=== PATIENT | female | born 1935 | race Caucasian/White ===

== ENCOUNTER → 2016-12-18 | Outpatient (CLI) | payer OTHER, BC ==
[~2016-12-18] MED LIST: ADVIN25/60 INH; ALBUAER INH; ASPI81TA28 PO; CHOL100010 PO; CYAN10004 PO; INSHNI SC; INSUINJ SC; LISI-792 PO; METF-382 PO; MULT-884 PO; OMEGCAP2 PO; RALO60TA12 PO; SIMV10TA5 PO
[2016-12-18 13:20] LABS: ESTIMATED AVERAGE GLUCOSE 140 mg/dl; HA1C FLAG Normal (Normal)
[2016-12-18 13:45] LABS: RATIO 18.1 mcg/mg (0-30.0)
== END | disposition home or self-care (01) ==
LOC: C.LABBFT 08:53
PROVIDERS: ATTEND Nurse Practitioner Adult Health
DX: E11.9 Type 2 diabetes mellitus without complications (principal); I10 Essential (primary) hypertension

== ENCOUNTER → 2017-03-20 | Outpatient (CLI) | payer OTHER, BC ==
[~2017-03-20] MED LIST changes: +BROM0.07; +CYAN100020 PO; +LISI-725 PO; +MULT-506 PO; +OMEG10007 PO; +POLYSOL21; +PRDFOPS; -RALO60TA12 PO; +RALO60TA30 PO; +SIMV10TA2 PO; +VNTHFA/IN INH; +ZNTT/150 PO
== END | disposition home or self-care (01) ==
LOC: C.LABBFT 12:01
PROVIDERS: ATTEND Internal Medicine
DX: E55.9 Vitamin D deficiency, unspecified (principal); E66.9 Obesity, unspecified

== ENCOUNTER → 2017-05-22 | Outpatient (CLI) | payer OTHER, BC ==
--- NOTE | 2017-05-23 09:07 | MAMMOGRAPHY REPORT ---
BILATERAL DIGITAL SCREENING MAMMOGRAM WITH CAD: 05/22/2017 CLINICAL HISTORY: Routine screening. Patient has no complaints. TECHNIQUE: Current study was also evaluated with a Computer Aided Detection (CAD) system. Bilateral CC and MLO views were obtained. COMPARISON: Comparison is made to exams dated: 05/16/2016 mammogram, 05/13/2015 mammogram, 05/12/2014 m ammogram, 05/06/2013 mammogram, 04/22/2012 mammogram, and 04/17/2011 mammogram - [facility] nter. BREAST COMPOSITION: The tissue of both breasts is heterogeneously dense, which may obscure small mas ses. FINDINGS: No suspicious masses, calcifications, or areas of architectural distortion are noted in ei ther breast. There has been no significant interval change compared to prior exams. Scattered bilater al benign-appearing calcifications are again noted. A linear scar marker denotes a scar on the right upper outer breast. IMPRESSION: ACR BI-RADS CATEGORY 2: BENIGN There is no mammographic evidence of malignancy. A 1 year screening mammogram is recommended. The pa tient will receive written notification of the results. Approximately 10% of breast cancers are not detected with mammography. A negative mammographic report should not delay biopsy if a clinically suggestive mass is present. Shannan Link M.D. /:05/22/2017 15:57:00 [employer]: Julia Garcia, [facility] letter sent: Normal 1/2 BI-RADS Code: ACR BI-RADS Category 2: Benign
== END | disposition home or self-care (01) ==
LOC: C.MAMM 10:22
PROVIDERS: ATTEND Obstetrics & Gynecology
DX: Z12.31 Encounter for screening mammogram for malignant neoplasm of breast (principal)

== ENCOUNTER → 2017-09-18 | Outpatient (CLI) | payer OTHER, BC ==
[~2017-09-18] MED LIST changes: +RALO60TA12 PO; -RALO60TA30 PO
[2017-09-18 17:28] LABS: BASO % 0.4 %; BASO ABS # 0.06 K/uL (0-0.2); COMPLETE YES; EOS % 1.2 %; HEMATOCRIT 43.2 % (37-47); IG% 0.5 %; LYMPH % 24.8 %; LYMPH ABS # 3.58 K/uL (1.2-3.4); MEAN CELL VOLUME 96.6 fL (80-100); MEAN CORPUSCULAR HEMOGLOBIN 31.1 pg (25-34); MEAN CORPUSCULAR HGB CONC 32.2 g/dl (32-36); MONO % 6.9 %; NEUT % 66.2 %; PLATELET COUNT 240 K/uL (130-400); RED BLOOD COUNT 4.47 M/uL (4.2-5.4); WHITE BLOOD COUNT 14.43 K/uL (4.8-10.8)
[2017-09-18 17:39] LABS: ALT/SGPT 26 U/L (12-78); BLOOD UREA NITROGEN 19 mg/dl (7-18); BUN/CREATININE RATIO 16.1 (10-20); CALCIUM 9.2 mg/dl (8.5-10.1); CARBON DIOXIDE 28 mmol/L (21-32); CHLORIDE 107 mmol/L (98-107); CHOLESTEROL 165 mg/dl (0-200); CREATININE 1.17 mg/dl (0.60-1.20); GLUCOSE 125 mg/dl (70-99); POTASSIUM 3.8 mmol/L (3.5-5.1); SODIUM 141 mmol/L (136-145)
[2017-09-18 17:45] LABS: ALB/GLOB RATIO 1.1 (0.9-2); ALKALINE PHOSPHATASE 87 U/L (45-117); AST/SGOT 22 U/L (15-37); CHOLESTEROL/HDL RATIO 2.1; HDL CHOLESTEROL 78 mg/dl; LDL CHOLESTEROL CALCULATED 51 mg/dl; TRIGLYCERIDES 179 mg/dl (0-150); VERY LOW DENSITY LIPOPROT CALC 36 mg/dl
[2017-09-19 05:57] LABS: ESTIMATED AVERAGE GLUCOSE 131 mg/dl; HA1C FLAG Normal (Normal)
== END | disposition home or self-care (01) ==
LOC: C.LABBFT 12:22
PROVIDERS: ATTEND Internal Medicine
DX: E11.9 Type 2 diabetes mellitus without complications (principal); E78.5 Hyperlipidemia, unspecified

== ENCOUNTER → 2017-09-23 | Day surgery (SDC) | payer OTHER, BC ==
[2017-09-19 08:40] VITALS: Ht 157.5 cm; Wt 77.3 kg
[~2017-09-23] VITALS: Ht 157.5 cm; Wt 77.3 kg
[~2017-09-23] MED LIST changes: +500ML BSS 0.3ML EPI 1:1000PF IRRIG ONE; +ACETAMINOPHEN 325 MG TAB PO PRN; -ALBUAER INH; +AMVISC PLUS 0.8ML SYRINGE INT OCU ONE; +ATROPINE SULFATE 0.1 MG/ML 5ML SYR IV PRN; +BRIMONIDINE TART 0.2% OP SOLN PER DROP CHARGE ONE; +BSS FLUSH ONE; -CYAN10004 PO; +ENDOCOAT 0.85ML SYRINGE INT OCU ONE; +EpHEDrine SULFATE INJ 50 MG/ML AMP IV PRN; +EpINEphrine INJ 1MG/ML AMP 1 MG/ML AMP ONE; -INSUINJ SC; +LACTATED RINGER'S 1000ML 500 ML IV SCH; +LIDOCAINE 4% OP SOLN DROP CHARGE ONE; +LIDOCAINE 4% OP SOLN DROP CHARGE OPR SCH; +LIDOCAINE HCL 1% MPF 2 ML VIAL ONE; -LISI-792 PO; -METF-382 PO; +MIDAZOLAM HCL 1 MG/ML 2ML VIAL ONE; +MOXIFLOXACIN OPH SOLN PER DROP CHARGE ONE; -MULT-884 PO; -OMEGCAP2 PO; +POVIDONE-IODINE OP SOLN 30 ML BTL ONE; +PROPARACAINE 0.5% OP SOLN PER DROP CHARGE OPR SCH; +PROPARACAINE HCL 0.5% OP SOLN 15 ML BTL OPR ONE; -RALO60TA12 PO; +RALO60TA30 PO; -SIMV10TA5 PO; +TOBRAMYCIN/DEXAMETHASONE OPH OINT PER APPLN CHARGE ONE
--- NOTE | 2017-09-23 06:56 | History & Physical Bridge - [place] ---
H&P Re-Evaluation Bridge Note: I have examined the patient, reviewed the History & Physical and in the interval since the performance of the History & Physical I have noted the following changes of clinical significance: No changes noted
[2017-09-23] MEDS: PHENYLEPHRINE HCL 2.5% OP SOLN PER DROP CHARGE OPR SCH ×2 (06:58→07:03)
[2017-09-23] MEDS: TROPICAMIDE 1% OP SOLN PER DROP CHARGE OPR SCH ×2 (06:59→07:04)
[2017-09-23] MEDS: CYCLOPENTOLATE HCL 1% OP SOLN PER DROP CHARGE OPR SCH ×2 (07:00→07:05)
[2017-09-23] MEDS: KETOROLAC 0.5% OP SOLN PER DROP CHARGE OPR SCH ×2 (07:01→07:06)
[2017-09-23] MEDS: MOXIFLOXACIN OPH SOLN PER DROP CHARGE OPR SCH ×2 (07:02→07:13)
--- NOTE | 2017-09-23 08:10 | Discharge Instructions-SurgCtr ---
Discharge Instructions Date of Service Sep 23, 2017. Visit Reason for Visit: Cataract Right Eye Discharge Discharge Diagnosis / Problem: cataract right eye Discharge Goals Goal(s): Improve function Activity Recommendations Activity Limitations: per Instructions/Follow-up section Lifting Limitations: no more than 5 pounds Anesthesia . Post Anesthesia Instructions: If you have had General Anesthesia or IV Sedation: * Do not drive today. * Resume driving when surgeon permits. * Do not make important decisions or sign legal documents today. * Call surgeon for: 1. Temperature elevations greater than 101 degrees F. 2. Uncontrollable pain. 3. Excessive bleeding. 4. Persistent nausea and vomiting. 5. Medication intolerance (nausea, vomiting or rash). * For nausea and vomiting use only clear liquids such as: tea, soda, bouillon until nausea subsides, then gradually increase diet as tolerated. * If you have any concerns or questions, call your surgeon's office. If physician is unavailable and it is an emergency, call 911 or go to the nearest emergency room. . Instructions / Follow-Up Instructions / Follow-Up ACTIVITY RECOMMENDATIONS: * Light activities * You may walk outside, read, watch television. * Mild irritation and blurred vision are common for the first few days, redness around the white part of the eye is common. MEDICATIONS: Resume previous medications unless instructed otherwise by your surgeon. Eye drops (today and tomorrow): Polytrim - one drop in operative eye every 2 hours while awake Prednisolone 1% - one drop in operative eye every 2 hours while awake Prolensa - one drop operative eye 1 times daily SPECIAL CARE INSTRUCTIONS: * If any problems or concerns, please call Dr. Medina's office at . * Keep plastic shield taped over eye to sleep at night. * Keep plastic shield taped over eye except to administer eye drops. * Keep plastic shield on until office visit the following day. FOLLOW UP VISIT: Follow-up with Dr. Medina in the [place] office as scheduled. If not already scheduled, please call the office at . Diet Recommendations Home Diet: resume previous diet Procedures Procedures Performed: Right Cataract Phacoemulsification With Intraocular Lens Implant; Toric Lens Pending Studies Studies pending at discharge: no Medical Emergencies . Who to Call and When: Medical Emergencies: If at any time you feel your situation is an emergency, please call 911 immediately. . Non-Emergent Contact Non-Emergency issues call your: Senior Courtroom Clerk . . "Provider Documentation" section prepared by Carlo Medina. .
[2017-09-23 08:11] VITALS: TEMP 36.8
--- NOTE | 2017-09-23 08:15 | [facility] Operative Report ---
Operative Report Operative Date Sep 23, 2017. Pre-Operative Diagnosis Cataract and astigmatism Right Eye Post-Operative Diagnosis Same Procedure(s) Performed Right Cataract Phacoemulsification With Intraocular Lens Implant; Toric Lens with femtosecond laser Surgeon Dr. Medina Administrative Hearing Officer Surgeon(s) None Estimated Blood Loss 0 mL Findings cataract right eye Fluids (cc crystalloids) see anesthesia record Specimens None Drains none Anesthesia local with sedation Complication(s) None Disposition Recovery Room / PACU Implants MIGUELINA [id number] 19.0 Indications decreased vision right eye Description of Procedure After informed consent was obtained in the holding area the patient was wheeled back to the femtosecond laser room. The right eye was docked with the laser and the laser made the capsulorrhexis, prechop of the lens, and the primary incision at the 9 o'clock position of the right cornea. The patient was then taken to the the operating room where cardiac monitoring leads and oxygen by nasal cannula was administered by Anesthesia. Gentle IV sedation was given, and the patient's right eye was prepped and draped in usual sterile fashion. A wire lid speculum was placed into the right eye and the operating microscope was swung into position. Using 0.12 forceps and a Supersharp blade a paracentesis port was made 2 o'clock hours away from the 9 o'clock position of the patient's right eye. 1% non-preserved Lidocaine was then injected into the anterior chamber for anesthesia. Endocoat was then injected into the anterior chamber. A 2.2 mm keratotome blade was then used to enter the femto shelved clear corneal incision at the 9 o'clock position of the right eye. Amvisc was injected into the anterior chamber and Utrata forceps were used to remove the curvilinear capsulorrhexis. BSS on a hydrodissection cannula was used to hydrodissect the lens nucleus away from the capsular bag. The phacoemulsification handpiece was then used in a stop and chop fashion to remove the lens nucleus. The irrigation and aspiration handpiece was then used to remove the residual cortical material. Amvisc was injected into the capsular bag and anterior chamber and a MIGUELINA ULE357 19.0 Diopter intraocular lens was injected into the capsular bag. Irrigation and aspiration handpiece was used to remove the residual viscoelastic material. The lens was aligned with corneal markings on the 15 degree axis of the right eye. The wounds were hydrated and noted to be watertight. The wire lid speculum was removed from the eye. Vigamox, Brimonidine, and TobraDex ointment were placed on the eye and it was shielded. It should be noted that EndoCoat was used extensively during the case to protect the cornea endothelium. DISPOSITION: The patient tolerated the procedure well and was wheeled to the post anesthesia care unit in stable condition. I attest to the content of the Intraoperative Record and any orders documented therein. Any exceptions are noted below. I attest to the content of the Intraoperative Record and any orders documented therein. Any exceptions are noted below.
--- NOTE | 2017-09-23 08:23 | Anesthesia Progress Nt - [facility] ---
Anesthesia Post Op Note Date & Time Sep 23, 2017 at 08:23 Vital Signs Pain Intensity: 0 Vital Signs Past 12 Hours Date Time Temp Pulse Resp B/P (MAP) Pulse Ox O2 Delivery O2 Flow Rate FiO2 09/23/17 08:11 36.8 63 18 157/85 (109) 99 Room Air 09/23/17 07:39 76 16 156/75 97 09/23/17 07:33 70 16 131/61 98 Room Air 09/23/17 06:46 36.8 82 16 147/74 (98) 98 Room Air Notes Mental Status: alert / awake / arousable, participated in evaluation Pt Amnestic to Procedure: Yes Nausea / Vomiting: adequately controlled Pain: adequately controlled Airway Patency, RR, SpO2: stable & adequate BP & HR: stable & adequate Hydration State: stable & adequate Anesthetic Complications: no major complications apparent
[2017-09-23 08:30] VITALS: BP 135/74; PULSE 63; O2SAT 98
== END | disposition home or self-care (01) ==
LOC: X.SURG 06:27
PROVIDERS: ATTEND Ophthalmology
DX: H25.11 Age-related nuclear cataract, right eye (principal); H52.201 Unspecified astigmatism, right eye; E10.9 Type 1 diabetes mellitus without complications; I49.9 Cardiac arrhythmia, unspecified; J45.909 Unspecified asthma, uncomplicated; Z79.4 Long term (current) use of insulin; Z79.82 Long term (current) use of aspirin; Z79.899 Other long term (current) drug therapy

== ENCOUNTER → 2017-10-14 | Day surgery (SDC) | payer OTHER, BC ==
[2017-10-08 08:04] VITALS: Ht 157.5 cm; Wt 77.3 kg
[~2017-10-14] VITALS: Ht 157.5 cm; Wt 77.3 kg
[~2017-10-14] MED LIST changes: -BROM0.07; +LIDOCAINE 4% OP SOLN DROP CHARGE OPL SCH; -LIDOCAINE 4% OP SOLN DROP CHARGE OPR SCH; -POLYSOL21; -PRDFOPS; +PROPARACAINE 0.5% OP SOLN PER DROP CHARGE OPL SCH; -PROPARACAINE 0.5% OP SOLN PER DROP CHARGE OPR SCH; +PROPARACAINE HCL 0.5% OP SOLN 15 ML BTL OPL ONE; -PROPARACAINE HCL 0.5% OP SOLN 15 ML BTL OPR ONE
[2017-10-14] MEDS: PHENYLEPHRINE HCL 2.5% OP SOLN PER DROP CHARGE OPL SCH ×2 (06:53→06:59)
[2017-10-14] MEDS: TROPICAMIDE 1% OP SOLN PER DROP CHARGE OPL SCH ×2 (06:54→06:59)
[2017-10-14] MEDS: CYCLOPENTOLATE HCL 1% OP SOLN PER DROP CHARGE OPL SCH ×2 (06:55→07:00)
[2017-10-14] MEDS: KETOROLAC 0.5% OP SOLN PER DROP CHARGE OPL SCH ×2 (06:56→07:01)
[2017-10-14] MEDS: MOXIFLOXACIN OPH SOLN PER DROP CHARGE OPL SCH ×2 (06:57→07:07)
--- NOTE | 2017-10-14 08:07 | Discharge Instructions-SurgCtr ---
Discharge Instructions Date of Service Oct 14, 2017. Visit Reason for Visit: Left Cataract Discharge Discharge Diagnosis / Problem: cataract left eye Discharge Goals Goal(s): Improve function Activity Recommendations Activity Limitations: per Instructions/Follow-up section Lifting Limitations: no more than 5 pounds Anesthesia . Post Anesthesia Instructions: If you have had General Anesthesia or IV Sedation: * Do not drive today. * Resume driving when surgeon permits. * Do not make important decisions or sign legal documents today. * Call surgeon for: 1. Temperature elevations greater than 101 degrees F. 2. Uncontrollable pain. 3. Excessive bleeding. 4. Persistent nausea and vomiting. 5. Medication intolerance (nausea, vomiting or rash). * For nausea and vomiting use only clear liquids such as: tea, soda, bouillon until nausea subsides, then gradually increase diet as tolerated. * If you have any concerns or questions, call your surgeon's office. If physician is unavailable and it is an emergency, call 911 or go to the nearest emergency room. . Instructions / Follow-Up Instructions / Follow-Up ACTIVITY RECOMMENDATIONS: * Light activities * You may walk outside, read, watch television. * Mild irritation and blurred vision are common for the first few days, redness around the white part of the eye is common. MEDICATIONS: Resume previous medications unless instructed otherwise by your surgeon. Eye drops (today and tomorrow): Polytrim - one drop in operative eye every 2 hours while awake Prednisolone 1% - one drop in operative eye every 2 hours while awake Prolensa - one drop operative eye 1 times daily SPECIAL CARE INSTRUCTIONS: * If any problems or concerns, please call Dr. Medina's office at . * Keep plastic shield taped over eye to sleep at night. * Keep plastic shield taped over eye except to administer eye drops. * Keep plastic shield on until office visit the following day. FOLLOW UP VISIT: Follow-up with Dr. Medina in the [place] office as scheduled. If not already scheduled, please call the office at . Diet Recommendations Home Diet: resume previous diet Procedures Procedures Performed: Left Cataract Phacoemulsification With Intraocular Lens Implant, Toric Lens Pending Studies Studies pending at discharge: no Medical Emergencies . Who to Call and When: Medical Emergencies: If at any time you feel your situation is an emergency, please call 911 immediately. . Non-Emergent Contact Non-Emergency issues call your: Lamp Shade Joiner . . "Provider Documentation" section prepared by Carlo Medina. .
--- NOTE | 2017-10-14 08:12 | [facility] Operative Report ---
Operative Report Operative Date Oct 14, 2017. Pre-Operative Diagnosis Cataract Left Eye Post-Operative Diagnosis Same Procedure(s) Performed Left Cataract Phacoemulsification With Intraocular Lens Implant, Toric Lens and femtosecond laser Surgeon Dr. Medina Dry Chain Puller Surgeon(s) None Estimated Blood Loss 0 Findings cataract left eye Fluids (cc crystalloids) see anesthesia record Specimens None Drains none Anesthesia local with sedation Complication(s) None Disposition Recovery Room / PACU Implants MIGUELINA [id number] 19.0 Indications decreased vision left eye Description of Procedure After informed consent was obtained in the holding area the patient was wheeled back to the femtosecond laser room where the left eye was docked with the laser. The laser made the primary incision at the 3 o'clock position of the left eye as well as the prechop of the lens and the capsulorrhexis. The patient was then taken to the operating room where cardiac monitoring leads and oxygen by nasal cannula was administered by Anesthesia. Gentle IV sedation was given, and the patient's left eye was prepped and draped in usual sterile fashion. A wire lid speculum was placed into the left eye and the operating microscope was swung into position. Using 0.12 forceps and a Supersharp blade a paracentesis port was made 2 o'clock hours away from the 3 o'clock position of the patient's left eye. 1% non-preserved Lidocaine was then injected into the anterior chamber for anesthesia. Endocoat was then injected into the anterior chamber. A Cristopher spatula was then used to enter the shelved clear corneal incision at the 3 o'clock position of the left eye. Amvisc was injected into the anterior chamber and Utrata forceps were used to remove the curvilinear capsulorrhexis. BSS on a hydrodissection cannula was used to hydrodissect the lens nucleus away from the capsular bag. The phacoemulsification handpiece was then used in a stop and chop fashion to remove the lens nucleus. The irrigation and aspiration handpiece was then used to remove the residual cortical material. Amvisc was injected into the capsular bag and anterior chamber and a MIGUELINA MAP357 19.0 Diopter intraocular lens was injected into the capsular bag. Irrigation and aspiration handpiece was used to remove the residual viscoelastic material. The lens was aligned along weber at the 176 degree meridian with weber made in preop. The wounds were hydrated and noted to be watertight. The wire lid speculum was removed from the eye. Vigamox, Brimonidine, and TobraDex ointment were placed on the eye and it was shielded. It should be noted that EndoCoat was used extensively during the case to protect the cornea endothelium. DISPOSITION: The patient tolerated the procedure well and was wheeled to the post anesthesia care unit in stable condition. I attest to the content of the Intraoperative Record and any orders documented therein. Any exceptions are noted below. I attest to the content of the Intraoperative Record and any orders documented therein. Any exceptions are noted below.
[2017-10-14 08:26] VITALS: BP 133/71; PULSE 63; O2SAT 97
[2017-10-14 08:27] VITALS: TEMP 36.4
--- NOTE | 2017-10-14 08:32 | Anesthesia Progress Nt - [facility] ---
Anesthesia Post Op Note Date & Time Oct 14, 2017 at 08:32 Vital Signs Pain Intensity: 0 Vital Signs Past 12 Hours Date Time Temp Pulse Resp B/P (MAP) Pulse Ox O2 Delivery O2 Flow Rate FiO2 10/14/17 08:27 36.4 10/14/17 08:26 63 20 133/71 (91) 97 Room Air 10/14/17 08:07 36.3 58 12 156/68 (97) 98 Room Air 10/14/17 07:37 75 16 143/82 96 10/14/17 07:29 69 16 134/69 97 10/14/17 06:41 36.6 81 16 146/50 (82) 98 Room Air Notes Mental Status: alert / awake / arousable, participated in evaluation Pt Amnestic to Procedure: Yes Nausea / Vomiting: adequately controlled Pain: adequately controlled Airway Patency, RR, SpO2: stable & adequate BP & HR: stable & adequate Hydration State: stable & adequate Anesthetic Complications: no major complications apparent
== END | disposition home or self-care (01) ==
LOC: X.SURG 06:28
PROVIDERS: ATTEND Ophthalmology
DX: E11.36 Type 2 diabetes mellitus with diabetic cataract (principal); H26.9 Unspecified cataract; J45.909 Unspecified asthma, uncomplicated; Z79.4 Long term (current) use of insulin; Z79.899 Other long term (current) drug therapy; Z90.89 Acquired absence of other organs

== ENCOUNTER → 2018-01-07 | Outpatient (CLI) | payer OTHER, BC ==
[~2018-01-07] MED LIST changes: -500ML BSS 0.3ML EPI 1:1000PF IRRIG ONE; -ACETAMINOPHEN 325 MG TAB PO PRN; -AMVISC PLUS 0.8ML SYRINGE INT OCU ONE; -ATROPINE SULFATE 0.1 MG/ML 5ML SYR IV PRN; -BRIMONIDINE TART 0.2% OP SOLN PER DROP CHARGE ONE; -BSS FLUSH ONE; -ENDOCOAT 0.85ML SYRINGE INT OCU ONE; -EpHEDrine SULFATE INJ 50 MG/ML AMP IV PRN; -EpINEphrine INJ 1MG/ML AMP 1 MG/ML AMP ONE; -LACTATED RINGER'S 1000ML 500 ML IV SCH; -LIDOCAINE 4% OP SOLN DROP CHARGE ONE; -LIDOCAINE 4% OP SOLN DROP CHARGE OPL SCH; -LIDOCAINE HCL 1% MPF 2 ML VIAL ONE; -MIDAZOLAM HCL 1 MG/ML 2ML VIAL ONE; -MOXIFLOXACIN OPH SOLN PER DROP CHARGE ONE; -POVIDONE-IODINE OP SOLN 30 ML BTL ONE; -PROPARACAINE 0.5% OP SOLN PER DROP CHARGE OPL SCH; -PROPARACAINE HCL 0.5% OP SOLN 15 ML BTL OPL ONE; +RANI150T85 PO; -TOBRAMYCIN/DEXAMETHASONE OPH OINT PER APPLN CHARGE ONE; -ZNTT/150 PO
[2018-01-07 13:22] LABS: HEMOGLOBIN A1C 6.3 % (4.5-5.6)
== END | disposition home or self-care (01) ==
LOC: C.LABBFT 08:17
PROVIDERS: ATTEND Nurse Practitioner Adult Health
DX: E11.9 Type 2 diabetes mellitus without complications (principal); Z79.4 Long term (current) use of insulin

== ENCOUNTER → 2018-01-17 | Outpatient (CLI) | payer OTHER, BC ==
--- NOTE | 2018-01-17 14:54 | DIAGNOSTIC IMAGING REPORT ---
RIGHT LOWER EXTREMITY VENOUS DOPPLER HISTORY: RIGHT LEG PAIN COMPARISON STUDY: None. FINDINGS: There is normal compressibility, flow, and augmentation within the right lower extremity deep venous system. IMPRESSION: No DVT within the right lower extremity Electronically signed by: Charles Cho M.D. 01/17/2018 2:53 PM Dictated Date/Time: 01/17/2018 2:52 PM
== END | disposition home or self-care (01) ==
LOC: C.ULTRBC 14:14
PROVIDERS: ATTEND Physician Assistant Medical
DX: M79.604 Pain in right leg (principal)

== ENCOUNTER → 2018-04-10 | Outpatient (CLI) | payer OTHER, BC | END | disposition home or self-care (01) | LOC: C.MAMM 08:18 | PROVIDERS: ATTEND Internal Medicine | DX: Z78.0 Asymptomatic menopausal state (principal) ==

== ENCOUNTER 2023-06-26 10:50 | Inpatient (IN) ==
[2023-06-26] MEDS ORDERED: SODIUM CHLORIDE 0.9% 1000ML 1,000 ML IV ONE (11:00)
--- NOTE | 2023-06-26 11:03 | Emergency Department Note ---
History of Present Illness General Chief complaint: Abdominal Pain Stated complaint: UPPER R AB PAIN Time Seen by Provider: 06/26/23 10:52 History of Present Illness 88-year-old female presents emergency department with complaint of right upper quadrant abdominal pain and diarrhea that started last evening. Then she started to vomit. Patient states some pain in the right upper quadrant. Per EMS she had a low blood pressure and was given 400 mL of IV fluids prior to arrival. Patient states she is nauseated. Patient's had a prior bowel resection and appendectomy. Patient states that she was in her usual state of health until last evening. There are no other mitigating or alleviating factors Home Medications Medication Instructions Recorded Confirmed Type cholecalciferol (vitamin D3) 50 2,000 units PO QAM 10/09/19 06/26/23 History mcg (2,000 unit) tablet cyanocobalamin (vitamin B-12) 2,000 mcg PO QAM 10/09/19 06/26/23 History 1,000 mcg tablet multivitamin (Multiple Vitamins 1 tab PO QAM 10/09/19 06/26/23 History tablet) omega-3 acid ethyl esters 1 gram 1 cap PO QAM 10/09/19 06/26/23 History capsule albuterol sulfate 90 mcg/actuation See Rx Instructions inhalation Q6H 07/29/20 06/26/23 Rx aerosol inhaler (Ventolin HFA) PRN shortness of breath or wheezing #18 grams hydrocortisone 2.5 % topical cream 1 applic IA TID PRN hemorrhoids 01/31/21 06/26/23 Rx with perineal applicator #30 grams diclofenac sodium 1 % topical gel 4 g topical QID PRN Pain 03/23/21 06/26/23 History (Voltaren) hydrochlorothiazide 25 mg tablet 12.5 mg PO QAM 11/16/21 06/26/23 History fluticasone 100 mcg-salmeterol 50 1 inh inhalation BID #60 ea 11/20/21 06/26/23 Rx mcg/dose blistr powdr for inhalation (Advair Diskus) OneTouch Ultra Test (blood sugar #300 ea 01/07/23 06/26/23 Rx diagnostic) insulin syringe-needle U-100 0.3 #100 ea 01/25/23 06/26/23 Rx mL 30 gauge x 1/2" (BD Insulin Syringe Ultra-Fine) simvastatin 10 mg tablet 10 mg PO HS #90 tabs 03/28/23 06/26/23 Rx insulin lispro 100 unit/mL See Rx Instructions subcut DAILY 04/03/23 06/26/23 Rx subcutaneous pen (Humalog KwikPen #15 mL (U-100) Insulin) pen needle, diabetic 32 gauge x #200 ea 05/17/23 06/26/23 Rx 5/32" (BD Ultra-Fine Ashley Pen Needle) insulin NPH isoph U-100 human 100 20 unit (0.2 mL) subcut QPM #10 mL 05/21/23 06/26/23 Rx unit/mL subcutaneous suspension (Humulin N NPH U-100 Insulin (isophane susp)) lisinopril 20 mg tablet 20 mg PO BID 90 days #180 tabs 06/18/23 06/26/23 Rx raloxifene 60 mg tablet 60 mg PO QAM #90 tabs 06/20/23 06/26/23 Rx dapagliflozin propanediol 10 mg 10 mg 06/26/23 History tablet (Farxiga) omeprazole magnesium 20 mg PO DAILY 06/26/23 06/26/23 History Allergies Allergy/AdvReac Type Severity Reaction Status Date / Time No Known Allergies Allergy Unknown Verified 05/17/23 09:59 Past Med/Surg History Medical History AI (aortic insufficiency) Asthma Cardiac murmur DM type 2 (diabetes mellitus, type 2) Dyslipidemia GERD (gastroesophageal reflux disease) History of colon polyps [place] (hard of hearing) Hypertension IBS (irritable bowel syndrome) Incontinence of urine [place] Osteoarthritis Rectal bleeding Surgical History H/O colonoscopy History of bowel resection History of colonoscopy History of esophagogastroduodenoscopy (EGD) History of lumpectomy S/P appendectomy Status post total abdominal hysterectomy and bilateral salpingo-oophorectomy Family History Mother Cervical cancer Lung cancer Brother Osteoarthritis Father Tuberculosis Other No family history of adverse response to anesthesia Denies family history of Ovarian cancer Prostate cancer Coronary heart disease Breast cancer Colorectal cancer Social History Smoking Status: Never smoker Second Hand Exposure: Yes (as a child); Do You Dip or Chew Tobacco: No; Hx Alcohol Use: Yes Hx Substance Use: No Preferred Language: Yi Communication Ability: Effective Visual Impairment: No Limitations Hearing Ability: Hard of Hearing Internal Consultant Required: No Beliefs That Will Affect Care: None marital status: / Current Living Situation: Alone current occupational status: retired Feels Safe at Home: Yes Childhood Exposure to Second-Hand Smoke: Yes Diet: diabetic caffeine: Yes during the past year weight has: remained stable Dental Care, Regularly: Yes Physical Activity Frequency: 5-6 Times per Week Seatbelt Use: always Sunscreen Use: Yes Assistive Devices: None Review of Systems A total of 10 systems reviewed and were otherwise negative Gastrointestinal: + abdominal pain and + vomiting Physical Exam Vital Signs Vital Signs - 24 hr 06/26/23 11:11 06/26/23 11:11 06/26/23 11:42 Temperature 36.5 C Temperature Source Oral Pulse Rate 82 88 Pulse Rate [Finger] Pulse Rhythm [Finger] Respiratory Rate 16 Respiratory Effort / Characteristics Non-Labored Respiratory Depth Normal Blood Pressure 109/87 Blood Pressure [Left Arm] Blood Pressure Mean 94 Blood Pressure Mean [Left Arm] Pulse Oximetry 100 95 Oxygen Delivery Method Room Air Room Air Sepsis Recent Fever Within 48 Hours No Sepsis New/Unexplained Change in Mental Status No Sepsis Action Taken by Nursing No Action Required 06/26/23 12:02 06/26/23 13:55 Temperature Temperature Source Pulse Rate Pulse Rate [Finger] 79 79 Pulse Rhythm [Finger] Regular Regular Respiratory Rate 16 16 Respiratory Effort / Characteristics Non-Labored Spontaneous Non-Labored Respiratory Depth Normal Normal Blood Pressure Blood Pressure [Left Arm] 146/80 H 154/65 H Blood Pressure Mean Blood Pressure Mean [Left Arm] 102 94 Pulse Oximetry 96 97 Oxygen Delivery Method Room Air Room Air Sepsis Recent Fever Within 48 Hours Sepsis New/Unexplained Change in Mental Status Sepsis Action Taken by Nursing GENERAL: Patient is awake alert in no acute distress patient is resting comfortably and showing no signs of anxiety EYES: The conjunctivae are clear. The pupils are round and reactive. EARS, NOSE, MOUTH AND THROAT: The nose is without any evidence of any deformity. Mucous membranes are moist. Tongue is midline. NECK: The neck is nontender and supple. RESPIRATORY: Normal respiratory effort is noted there is no evidence of wheezing rhonchi or rales CARDIOVASCULAR: Regular rate and rhythm noted there no murmurs rubs or gallops normal S1 normal S2. GASTROINTESTINAL: The abdomen is soft. Abdomen is nontender. Large surgical scar present the right abdomen; there are decreased bowel sounds present BACK: No midline tenderness or or step-off noted range of motion in flexion extension as well as rotation no signs of muscle spasm noted MUSCULOSKELETAL/EXTREMITIES: There is no evidence of gross deformity full range of motion is noted in the hips and shoulders. SKIN: There is no obvious evidence of any rash. There are no petechiae, pallor or cyanosis noted. NEUROLOGIC: Patient is awake alert and oriented x3 strength is symmetric Course Reevaluation(s) Reevaluation #1: Patient continues to complain of nausea. Patient was started on IV fluids, empirically started on IV Zosyn, patient was given multiple doses of Zofran. Patient will be started on an NG tube due to high-grade bowel obstruction. Time: 14:00 Consultations Consultation #1: Case was discussed with the surgical team covering for Dr. Kunz at 1400 Time: 14:00 Consultation #2: Case was discussed with the [facility] hospitalist Dr. Ramos and accepts the patient for admission for small bowel obstruction Time: 14:00 Administered Medications Discontinued Medications Sodium Chloride (Nss 1000ml) 1,000 mls @ 999 mls/hr IV .Q1H1M ONE Stop: 06/26/23 12:00 Last Infusion: 06/26/23 12:15 Dose: 0 mls/hr Documented By: Admin: 06/26/23 11:06 Dose: 999 mls/hr Documented By: VAL Ioversol (Optiray 320 100ml) 91 ml IV ONCE ONE Stop: 06/26/23 12:51 Last Admin: 06/26/23 12:52 Dose: 91 ml Documented By: NORA Ondansetron HCl (Ondansetron Inj 2 Mg/Ml 2 Ml Vial) Confirm Administered Dose 4 mg .ROUTE .STK-MED ONE Stop: 06/26/23 11:45 Last Admin: 06/26/23 11:48 Dose: Not Given Documented By: VAL Ondansetron HCl (Ondansetron Inj 2 Mg/Ml 2 Ml Vial) 4 mg IV NOW STA Stop: 06/26/23 11:48 Last Admin: 06/26/23 11:48 Dose: 4 mg Documented By: VAL Critical Care Time Critical Care Time: Yes Total Critical Care Time: 35 I have personally spent greater than 35 minutes of critical care time in the direct management of this patient. This includes bedside care, interpretation of diagnostic studies, and testing, discussion with consultants, patient, and family members, and other required patient management activities. These minutes are in excess of all separately billable procedures. Medical Decision Making Medical Records Attestation: I reviewed the patient's medical records. Home Medications Current Medication List: was personally reviewed by me Laboratory Data Attestation: I reviewed the patient's lab results. Labs interpreted by me elevated white blood cell count elevated blood sugar 06/26/23 10:53 06/26/23 10:53 Lab Results 06/26/23 06/26/23 06/26/23 Range/Units 10:53 10:53 10:53 WBC 15.38 H (4.8-10.8) K/ul RBC 4.49 (4.20-5.40) M/uL Hgb 14.2 (12.0-16.0) g/dl Hct 42.2 (37.0-47.0) % MCV 94.0 (80.0-100.0) fL MCH 31.6 (25.0-34.0) pg MCHC 33.6 (32.0-36.0) g/dL RDW Std Deviation 48.9 H (36.4-46.3) fL RDW Coeff of Reji 14.2 (11.5-14.5) % Plt Count 211 (130-400) K/uL MPV 11.7 (9.4-12.4) fL Immature Gran % (Auto) 0.5 % Neut % (Auto) 79.1 % Lymph % (Auto) 13.7 % [place] % (Auto) 6.2 % Eos % (Auto) 0.1 % Baso % (Auto) 0.4 % Neut # (Auto) 12.16 H (1.40-6.50) K/uL Lymph # (Auto) 2.10 (1.2-3.4) K/uL Hyde # (Auto) 0.96 H (0.11-0.59) K/uL Eos # (Auto) 0.02 (0-0.50) K/uL Baso # (Auto) 0.06 (0-0.2) K/uL Immature Gran # (Auto) 0.08 (0.01-0.20) K/uL PT (9.0-12.0) Seconds INR (0.9-1.1) Sodium 142 (136-145) mmol/L Potassium 4.1 (3.5-5.1) mmol/L Chloride 109 H (98-107) mmol/L Carbon Dioxide 26 (21-32) mmol/L Anion Gap 7 (3-11) BUN 27 H (6-23) mg/dl Creatinine 1.10 (0.6-1.2) mg/dl Est Cr Clr Drug Dosing Not Reportable Est GFR ( Amer) 51.9 ml/min Est GFR (Non-Af Amer) 44.8 ml/min BUN/Creatinine Ratio 24.5 H (10-20) Glucose 226 H (70-99(Fasting)) mg/dl Lactate 2.1 H* (0.4-2.0) mmol/L Calcium 9.6 (8.6-10.3) mg/dl Total Bilirubin 0.7 (0.2-1.0) mg/dl AST 22 (13-39) U/L ALT 22 (7-52) U/L Alkaline Phosphatase 70 (34-104) U/L Troponin I High Sens 16.3 H (0-14) pg/ml Total Protein 6.4 (6.0-8.3) gm/dl Albumin 3.9 (3.4-5.0) gm/dl Globulin 2.5 (2.5-4.0) gm/dl Albumin/Globulin Ratio 1.6 (0.9-2) Lipase 5 L (11-82) U/L Urine Color Urine Appearance (Clear) Urine pH (4.5-7.5) Ur Specific [place] (1.000-1.030) Urine Protein (Negative) Urine Glucose (UA) (Negative) Urine Ketones (Negative) Urine Blood (Negative) Urine Nitrite (Negative) Urine Bilirubin (Negative) Urine Urobilinogen (Negative) Ur Leukocyte Esterase (Negative) 06/26/23 06/26/23 Range/Units 11:05 13:19 WBC (4.8-10.8) K/ul RBC (4.20-5.40) M/uL Hgb (12.0-16.0) g/dl Hct (37.0-47.0) % MCV (80.0-100.0) fL MCH (25.0-34.0) pg MCHC (32.0-36.0) g/dL RDW Std Deviation (36.4-46.3) fL RDW Coeff of Reji (11.5-14.5) % Plt Count (130-400) K/uL MPV (9.4-12.4) fL Immature Gran % (Auto) % Neut % (Auto) % Lymph % (Auto) % [place] % (Auto) % Eos % (Auto) % Baso % (Auto) % Neut # (Auto) (1.40-6.50) K/uL Lymph # (Auto) (1.2-3.4) K/uL [place] # (Auto) (0.11-0.59) K/uL Eos # (Auto) (0-0.50) K/uL Baso # (Auto) (0-0.2) K/uL Immature Gran # (Auto) (0.01-0.20) K/uL PT 10.5 (9.0-12.0) Seconds INR 1.0 (0.9-1.1) Sodium (136-145) mmol/L Potassium (3.5-5.1) mmol/L Chloride (98-107) mmol/L Carbon Dioxide (21-32) mmol/L Anion Gap (3-11) BUN (6-23) mg/dl Creatinine (0.6-1.2) mg/dl Est Cr Clr Drug Dosing Est GFR ( Amer) ml/min Est GFR (Non-Af Amer) ml/min BUN/Creatinine Ratio (10-20) Glucose (70-99(Fasting)) mg/dl Lactate (0.4-2.0) mmol/L Calcium (8.6-10.3) mg/dl Total Bilirubin (0.2-1.0) mg/dl AST (13-39) U/L ALT (7-52) U/L Alkaline Phosphatase (34-104) U/L Troponin I High Sens (0-14) pg/ml Total Protein (6.0-8.3) gm/dl Albumin (3.4-5.0) gm/dl Globulin (2.5-4.0) gm/dl Albumin/Globulin Ratio (0.9-2) Lipase (11-82) U/L Urine Color Yellow Urine Appearance Clear (Clear) Urine pH 5.0 (4.5-7.5) Ur Specific [place] 1.037 H (1.000-1.030) Urine Protein Negative (Negative) Urine Glucose (UA) Negative (Negative) Urine Ketones Trace H (Negative) Urine Blood Negative (Negative) Urine Nitrite Negative (Negative) Urine Bilirubin Negative (Negative) Urine Urobilinogen Negative (Negative) Ur Leukocyte Esterase Negative (Negative) Imaging Data Attestation: I personally reviewed and interpreted this imaging study as follows: My Impression: Chest x-ray interpreted by me negative for infiltrate CT abdomen pelvis interpreted by me no obvious kidney stone Radiologist's Impression: Chest X-Ray 06/26/23 10:53 XR chest 1V portable HISTORY: 88 years-old Female abd pain acute chest and abdominal pain with diarrhea COMPARISON: None TECHNIQUE: AP view of the chest FINDINGS: Cardiac mediastinal and hilar silhouettes are within normal limits. No pneumothorax, pleural effusion, airspace consolidation or pulmonary edema. Degenerative changes of the shoulders and spine. IMPRESSION: No acute process. ACT 112: Negative or not required by law. The above report was generated using voice recognition software. It may contain grammatical, syntax or spelling errors. Electronically signed by: Steve Martínez M.D. 06/26/2023 11:43 AM Abdomen/Pelvis CT 06/26/23 11:[address] WITH IV CONTRAST CT DOSE: 980.30 mGy.cm HISTORY: Acute right upper quadrant abdominal pain ruq abd pain TECHNIQUE: Multiaxial CT images of the abdomen and pelvis were performed following the IV administration of 91 cc of Optiray, A dose lowering technique was utilized adhering to the principles of ALARA. COMPARISON STUDY: 08/20/2015 FINDINGS: Moderate coronary artery calcifications. Clear lung bases. No pneumatosis or pneumoperitoneum. Unremarkable spleen, moderately atrophic pancreas and right adrenal gland. Stable nodular thickening of the left adrenal gland suggestive of hyperplasia. Contracted gallbladder with cholelithiasis. Mild nonspecific intrahepatic and extrahepatic biliary ductal dilation. The common bile duct measures 10 mm. Unremarkable liver. Patent portal vein. Cortical and renal sinus cysts of the kidneys. The largest cyst within the inferior pole right kidney measures 7.2 x 7.7 cm. Mild cortical thinning of the kidneys without hydronephrosis. Unremarkable urinary bladder. Atherosclerosis of the aorta and branch vessels. No lymphadenopathy. Wall thickening of the distal esophagus. The stomach is distended, air and fluid-filled. Duodenal diverticula. Distended air and fluid-filled loops of small bowel measure up to approximately 4 cm. Interloop edema with small volume of abdominal pelvic ascites. Transition point noted within the abdominal lower quadrant with decompressed distal loops. Mild twisting of the right lower quadrant mesentery. Status post right colon resection. Colonic diverticulosis. Unremarkable soft tissues. No acute fracture. IMPRESSION: 1. High-grade small bowel obstruction with transition point within the abdominal right lower quadrant, possibly secondary to an internal hernia. 2. Associated interloop edema with small volume of ascites. No pneumatosis or pneumoperitoneum. 3. Cholelithiasis. 4. Colonic diverticulosis. 5. Additional findings as above. ACT 112: Negative or not required by law. The above report was generated using voice recognition software. It may contain grammatical, syntax or spelling errors. Electronically signed by: Steve Martínez M.D. 06/26/2023 1:[address] [facility] Narrative Medical decision making differential diagnosis includes gastritis, gastroenteritis, colitis, cholecystitis, ulcer, obstruction, metabolic derangement, dehydration Plan is to check labs, CT abdomen pelvis, give IV fluids EMS gave me bedside report External medical records were reviewed by me Patient was started on IV fluids, IV Zofran, underwent CT imaging which shows a high-grade bowel obstruction, had an NG tube placed, was given empiric Zosyn, case was discussed with surgery, case was discussed with the hospitalist medical service for admission Impression & Plan SBO (small bowel obstruction), Leukocytosis Discharge Plan Visit Data Chief Complaint: Abdominal Pain Stated Complaint: UPPER R AB PAIN ED Provider: Abiel Euceda Discharge Problem: SBO (small bowel obstruction), Leukocytosis Patient Disposition: Admitted As Inpatient Forms Stand Alone Forms: My [facility] Prescriptions Prescriptions: No Action albuterol sulfate [Ventolin HFA] 90 mcg/actuation HFA aerosol inhaler See Rx Instructions INH Q6H PRN (Reason: shortness of breath or wheezing) Qty: 18 5RF Rx Instructions: 2 puffs inhalation every 6 hours PRN; fluticasone propion-salmeterol [Advair Diskus] 100-50 mcg/dose blister with device 1 inh inhalation BID Qty: 60 11RF (DME) OneTouch Ultra Test Strip See Rx Instructions .ROUTE .MEDSUPPLY Qty: 300 1RF Rx Instructions: test 3 times daily (DME) insulin syringe-needle U-100 [BD Insulin Syringe Ultra-Fine] 0.3 mL 30 gauge x 1/2" syringe See Rx Instructions .Route Qty: 100 2RF Rx Instructions: use 1 QD with insulin simvastatin 10 mg tablet 10 mg PO HS Qty: 90 3RF insulin lispro [Humalog KwikPen Insulin] 100 unit/mL insulin pen See Rx Instructions subcut DAILY Qty: 15 2RF Rx Instructions: 3-5 units before supper for BG >140. subcutaneously daily; 3-5 units before supper for BG >140. subcutaneously Humulin N NPH U-100 Insulin 100 unit/mL suspension 20 unit subcut QPM Qty: 10 3RF lisinopril 20 mg tablet 20 mg PO BID 90 Days Qty: 180 3RF raloxifene 60 mg tablet 60 mg PO QAM Qty: 90 3RF cyanocobalamin (vitamin B-12) 1,000 mcg tablet 2,000 mcg PO QAM multivitamin [Multiple Vitamins] tablet 1 tab PO QAM cholecalciferol (vitamin D3) 2,000 unit tablet 2,000 units PO QAM omega-3 acid ethyl esters 1 gram capsule 1 cap PO QAM diclofenac sodium [Voltaren] 1 % gel 4 g TOP QID PRN (Reason: Pain) Rx Instructions: apply to single knee, ankle, foot; for foot includes sole/toes/top of foot hydrocortisone 2.5 % cream with perineal applicator 1 applic IA TID PRN (Reason: hemorrhoids) Qty: 30 2RF (DME) pen needle, diabetic [BD Ultra-Fine Ashley Pen Needle] 32 gauge x 5/32" needle See Rx Instructions .Route Qty: 200 5RF Rx Instructions: use 4 times per day and as needed hydrochlorothiazide 25 mg tablet 12.5 mg PO QAM Farxiga 10 mg tablet 10 mg omeprazole magnesium 20 mg PO DAILY Referrals Referrals: Aaron Olivera MD [Primary Care Provider] -
[2023-06-26 11:25] LABS: Basophils # (auto) 0.06 K/uL (0-0.2); Basophils % (auto) 0.4 %; Eosinophils # (auto) 0.02 K/uL (0-0.50); Eosinophils % (auto) 0.1 %; Hematocrit (blood only) 42.2 % (37.0-47.0); Hemoglobin 14.2 g/dl (12.0-16.0); Immature Granulocytes # (auto) 0.08 K/uL (0.01-0.20); Immature Granulocytes % (auto) 0.5 %; Lymphocytes % (auto) 13.7 %; Mean Corpuscular Hemoglobin 31.6 pg (25.0-34.0); Mean Corpuscular Hgb Conc 33.6 g/dL (32.0-36.0); Mean Platelet Volume 11.7 fL (9.4-12.4); Monocytes # (auto) 0.96 K/uL (0.11-0.59); Monocytes % (auto) 6.2 %; Neutrophils # (auto) 12.16 K/uL (1.40-6.50); Neutrophils % (auto) 79.1 %; Platelet Count 211 K/uL (130-400); RDW Coefficient of Variation 14.2 % (11.5-14.5); RDW Standard Deviation 48.9 fL (36.4-46.3); Red Blood Count 4.49 M/uL (4.20-5.40); White Blood Count 15.38 K/ul (4.8-10.8)
[2023-06-26 11:42] LABS: Alanine Aminotransferase 22 U/L (7-52); Albumin Globulin Ratio 1.6 (0.9-2); Albumin Level 3.9 gm/dl (3.4-5.0); Alkaline Phosphatase 70 U/L (34-104); Anion Gap 7 (3-11); Aspartate Aminotransferase 22 U/L (13-39); BUN Creatinine Ratio 24.5 (10-20); Bilirubin,Total 0.7 mg/dl (0.2-1.0); Blood Urea Nitrogen 27 mg/dl (6-23); Calcium 9.6 mg/dl (8.6-10.3); Carbon Dioxide 26 mmol/L (21-32); Chloride 109 mmol/L (98-107); Est GFR (African American) 51.9 ml/min; Est GFR (Non-African American) 44.8 ml/min; Globulin 2.5 gm/dl (2.5-4.0); Glucose 226 mg/dl (70-99(Fasting)); Lipase 5 U/L (11-82); Potassium 4.1 mmol/L (3.5-5.1); Sodium 142 mmol/L (136-145); Total Protein 6.4 gm/dl (6.0-8.3)
[2023-06-26] MEDS ORDERED: ONDANSETRON INJ 2 MG/ML 2 ML VIAL ONE (11:44)
--- NOTE | 2023-06-26 11:44 | XRay Report ---
XR chest 1V portable HISTORY: 88 years-old Female abd pain acute chest and abdominal pain with diarrhea COMPARISON: None TECHNIQUE: AP view of the chest FINDINGS: Cardiac mediastinal and hilar silhouettes are within normal limits. No pneumothorax, pleural effusion , airspace consolidation or pulmonary edema. Degenerative changes of the shoulders and spine. IMPRESSION: No acute process. ACT 112: Negative or not required by law. The above report was generated using voice recognition software. It may contain grammatical, syntax o r spelling errors. Electronically signed by: Steve Martínez M.D. 06/26/2023 11:43 AM
[2023-06-26 11:47] LABS: Troponin I High Sensitivity 16.3 pg/ml (0-14)
[2023-06-26] MEDS ORDERED: ONDANSETRON INJ 2 MG/ML 2 ML VIAL IV STA (11:47)
[2023-06-26 11:52] LABS: Prothrombin Time 10.5 Seconds (9.0-12.0)
[2023-06-26] MEDS ORDERED: OPTIRAY 320 100ml IV ONE (12:50)
[2023-06-26] MEDS ORDERED: ASPIRIN CHEW 324 MG PO STA (13:32)
[2023-06-26 13:40] LABS: Appearance Urine Clear (Clear); Bilirubin Urine Negative (Negative); Blood Urine Negative (Negative); Color Urine Yellow; Glucose Urine UA Negative (Negative); Ketones Urine Trace (Negative); Leukocyte Esterase Urine Negative (Negative); Nitrite Urine Negative (Negative); Protein Urine Negative (Negative); Specific Gravity Urine 1.037 (1.000-1.030); Urobilinogen Urine Negative (Negative)
--- NOTE | 2023-06-26 13:44 | CT Scan Report ---
ABDOMEN AND PELVIS CT WITH IV CONTRAST CT DOSE: 980.30 mGy.cm HISTORY: Acute right upper quadrant abdominal pain ruq abd pain TECHNIQUE: Multiaxial CT images of the abdomen and pelvis were performed following the IV administrat ion of 91 cc of Optiray, A dose lowering technique was utilized adhering to the principles of ALARA. COMPARISON STUDY: 08/20/2015 FINDINGS: Moderate coronary artery calcifications. Clear lung bases. No pneumatosis or pneumoperitone um. Unremarkable spleen, moderately atrophic pancreas and right adrenal gland. Stable nodular thicken ing of the left adrenal gland suggestive of hyperplasia. Contracted gallbladder with cholelithiasis. Mild nonspecific intrahepatic and extrahepatic biliary ductal dilation. The common bile duct measures 10 mm. Unremarkable liver. Patent portal vein. Cortical and renal sinus cysts of the kidneys. The largest cyst within the inferior pole right kidney measures 7.2 x 7.7 cm. Mild cortical thinning of the kidneys without hydronephrosis. Unremarkable ur inary bladder. Atherosclerosis of the aorta and branch vessels. No lymphadenopathy. Wall thickening of the distal esophagus. The stomach is distended, air and fluid-filled. Duodenal div erticula. Distended air and fluid-filled loops of small bowel measure up to approximately 4 cm. Inter loop edema with small volume of abdominal pelvic ascites. Transition point noted within the abdominal lower quadrant with decompressed distal loops. Mild twisting of the right lower quadrant mesentery. Status post right colon resection. Colonic diverticulosis. Unremarkable soft tissues. No acute fracture. IMPRESSION: 1. High-grade small bowel obstruction with transition point within the abdominal right lower quadrant , possibly secondary to an internal hernia. 2. Associated interloop edema with small volume of ascites. No pneumatosis or pneumoperitoneum. 3. Cholelithiasis. 4. Colonic diverticulosis. 5. Additional findings as above. ACT 112: Negative or not required by law. The above report was generated using voice recognition software. It may contain grammatical, syntax o r spelling errors. Electronically signed by: Steve Martínez M.D. 06/26/2023 1:43 PM
[2023-06-26] MEDS ORDERED: PIPERACILLIN/TAZOBACTAM 4.5 GM/120 ML BAG IV ONE (13:48)
[2023-06-26] MEDS ORDERED: PANTOprazole 40 MG in SYRINGE 0 ML IV STA (14:03)
--- NOTE | 2023-06-26 14:03 | History & Physical Report ---
Date of Service June 26, 2023 Assessment & Plan (1) Small bowel obstruction: Plan: Suspected secondary to internal hernia NG tube to low intermittent suction NPO IV fluids Consult surgery (2) Nausea and vomiting: Plan: Ondansetron PRN, resolved now with NG tube Send sample for gastric occult blood (3) GERD (gastroesophageal reflux disease): Plan: Switch omeprazole to pantoprazole 40mg IV BID (4) Hypertension: Plan: Hold all anti-hypertensives at this time (5) Controlled type 2 diabetes mellitus, with long-term current use of insulin: Plan: HbA1C 6.7 in April Hold home regimen of insulin NPH and Farxiga Novolog: --Goal BSG Range: Low 110 mg/dL, High 140mg/dL --Correction Factor: 45 mg/dL/unit No carb ratio --BSGs ACHS if eating, q6h if npo Add basal if needing frequent correction factor Plan VTE Prophylaxis - Lovenox 40mg SQ Daily Diet - NPO Disposition - admit to med/surg Admission and Anticipated Discharge Date Admission Date: June 26, 2023 History of Present Illness Chief Complaint: Abdominal discomfort, diarrhea, emesis Primary Care Provider: Aaron Olivera MD Meme Thomas is an 88 year old female who presents to the ER with diarrhea, emesis and abdominal discomfort. She reports two weeks of RUQ, intermittent, abdominal discomfort. Last night however this turned into vomiting and diarrhea. She is a retired nurse and initially felt she could manage this at home but the vomiting persisted to today with abdominal distension and RUQ discomfort (severity 2/10, no radiation) therefore decided to come to the ER. No prior history of small bowel obstruction however she had a prior partial colectomy due to a polyp in 1989 which turned out to be benign. She also reports prior appendectomy in high school. History of GI ulcer in 1979 not requiring a bloood transfusion. Allergies Allergy/AdvReac Type Severity Reaction Status Date / Time No Known Allergies Allergy Unknown Verified 05/17/23 09:59 Home Medications Medication Instructions Recorded Confirmed Type cholecalciferol (vitamin D3) 50 2,000 units PO QAM 10/09/19 06/26/23 History mcg (2,000 unit) tablet cyanocobalamin (vitamin B-12) 2,000 mcg PO QAM 10/09/19 06/26/23 History 1,000 mcg tablet multivitamin (Multiple Vitamins 1 tab PO QAM 10/09/19 06/26/23 History tablet) omega-3 acid ethyl esters 1 gram 1 cap PO QAM 10/09/19 06/26/23 History capsule albuterol sulfate 90 mcg/actuation See Rx Instructions inhalation Q6H 07/29/20 06/26/23 Rx aerosol inhaler (Ventolin HFA) PRN shortness of breath or wheezing #18 grams hydrocortisone 2.5 % topical cream 1 applic NE TID PRN hemorrhoids 01/31/21 06/26/23 Rx with perineal applicator #30 grams diclofenac sodium 1 % topical gel 4 g topical QID PRN Pain 03/23/21 06/26/23 History (Voltaren) hydrochlorothiazide 25 mg tablet 12.5 mg PO QAM 11/16/21 06/26/23 History fluticasone 100 mcg-salmeterol 50 1 inh inhalation BID #60 ea 11/20/21 06/26/23 Rx mcg/dose blistr powdr for inhalation (Advair Diskus) OneTouch Ultra Test (blood sugar #300 ea 01/07/23 06/26/23 Rx diagnostic) insulin syringe-needle U-100 0.3 #100 ea 01/25/23 06/26/23 Rx mL 30 gauge x 1/2" (BD Insulin Syringe Ultra-Fine) simvastatin 10 mg tablet 10 mg PO HS #90 tabs 03/28/23 06/26/23 Rx insulin lispro 100 unit/mL See Rx Instructions subcut DAILY 04/03/23 06/26/23 Rx subcutaneous pen (Humalog KwikPen #15 mL (U-100) Insulin) pen needle, diabetic 32 gauge x #200 ea 05/17/23 06/26/23 Rx 5/32" (BD Ultra-Fine Ashley Pen Needle) insulin NPH isoph U-100 human 100 20 unit (0.2 mL) subcut QPM #10 mL 05/21/23 06/26/23 Rx unit/mL subcutaneous suspension (Humulin N NPH U-100 Insulin (isophane susp)) lisinopril 20 mg tablet 20 mg PO BID 90 days #180 tabs 06/18/23 06/26/23 Rx raloxifene 60 mg tablet 60 mg PO QAM #90 tabs 06/20/23 06/26/23 Rx dapagliflozin propanediol 10 mg 10 mg 06/26/23 History tablet (Farxiga) omeprazole magnesium 20 mg PO DAILY 06/26/23 06/26/23 History Past Med/Surg History Medical History AI (aortic insufficiency) Asthma Cardiac murmur DM type 2 (diabetes mellitus, type 2) Dyslipidemia GERD (gastroesophageal reflux disease) History of colon polyps [place] (hard of hearing) Hypertension IBS (irritable bowel syndrome) Incontinence of urine Megacolon Osteoarthritis Rectal bleeding Surgical History H/O colonoscopy History of bowel resection History of colonoscopy History of esophagogastroduodenoscopy (EGD) History of lumpectomy S/P appendectomy Status post total abdominal hysterectomy and bilateral salpingo-oophorectomy Family History Mother Cervical cancer Lung cancer Brother Osteoarthritis Father Tuberculosis Other No family history of adverse response to anesthesia Denies family history of Ovarian cancer Prostate cancer Coronary heart disease Breast cancer Colorectal cancer Social History Smoking Status: Never smoker Second Hand Exposure: Yes (as a child); Do You Dip or Chew Tobacco: No; Hx Alcohol Use: No Hx Substance Use: No Preferred Language: Telugu Communication Ability: Effective Visual Impairment: No Limitations Hearing Ability: Hard of Hearing Neonatal Social Worker Required: No Beliefs That Will Affect Care: None marital status: / Current Living Situation: Alone current occupational status: retired Feels Safe at Home: Yes Safety Concerns: Feels Safe At This Time Childhood Exposure to Second-Hand Smoke: Yes Diet: diabetic caffeine: Yes during the past year weight has: remained stable Dental Care, Regularly: Yes Physical Activity Frequency: 5-6 Times per Week Seatbelt Use: always Sunscreen Use: Yes Assistive Devices: Glasses Review of Systems Review of Systems: All systems reviewed & are unremarkable except as noted in HPI & below Physical Exam Constitutional: WD/WN, vitals as above Eyes: PERRL, conjunctivae normal, anicteric sclerae ENMT: external ear and nose normal, oropharynx normal Respiratory: normal respiratory effort, lungs clear to auscultation Cardiovascular: RRR, no murmur, no edema Gastrointestinal (Abdomen): normal bowel sounds, soft, nontender, no hepatosplenomegaly Musculoskeletal: no cyanosis or clubbing, extremities motor strength 5/5 Skin: no rashes, warm and dry Neurologic: moves all extremities and awake; not confused Psychiatric: A+Ox3, euthymic affect Results & Data Results & Data Vital Signs (Past 12 Hours) Vital Signs Temp Pulse Pulse Resp BP BP Pulse Ox 06/26/23 13:55 79 16 154/65 H 97 06/26/23 12:02 79 16 146/80 H 96 06/26/23 11:42 88 06/26/23 11:11 95 06/26/23 11:11 36.5 C 82 16 109/87 100 O2 Del Method 06/26/23 13:55 Room Air 06/26/23 12:02 Room Air 06/26/23 11:42 06/26/23 11:11 Room Air 06/26/23 11:11 Room Air Laboratory Results Abnormal lab results 06/26/23 06/26/23 06/26/23 Range/Units 10:53 10:53 10:53 WBC 15.38 H (4.8-10.8) K/ul RDW Std Deviation 48.9 H (36.4-46.3) fL Neut # (Auto) 12.16 H (1.40-6.50) K/uL [place] # (Auto) 0.96 H (0.11-0.59) K/uL Chloride 109 H (98-107) mmol/L BUN 27 H (6-23) mg/dl BUN/Creatinine Ratio 24.5 H (10-20) Glucose 226 H (70-99(Fasting)) mg/dl Lactate 2.1 H* (0.4-2.0) mmol/L Troponin I High Sens 16.3 H (0-14) pg/ml Lipase 5 L (11-82) U/L Ur Specific [place] (1.000-1.030) Urine Ketones (Negative) 06/26/23 Range/Units 13:19 WBC (4.8-10.8) K/ul RDW Std Deviation (36.4-46.3) fL Neut # (Auto) (1.40-6.50) K/uL [place] # (Auto) (0.11-0.59) K/uL Chloride (98-107) mmol/L BUN (6-23) mg/dl BUN/Creatinine Ratio (10-20) Glucose (70-99(Fasting)) mg/dl Lactate (0.4-2.0) mmol/L Troponin I High Sens (0-14) pg/ml Lipase (11-82) U/L Ur Specific [place] 1.037 H (1.000-1.030) Urine Ketones Trace H (Negative) Diagnostic Findings XR chest 1V portable HISTORY: 88 years-old Female abd pain acute chest and abdominal pain with diarrhea COMPARISON: None TECHNIQUE: AP view of the chest FINDINGS: Cardiac mediastinal and hilar silhouettes are within normal limits. No pneumothorax, pleural effusion, airspace consolidation or pulmonary edema. Degenerative changes of the shoulders and spine. IMPRESSION: No acute process. ABDOMEN AND PELVIS CT WITH IV CONTRAST CT DOSE: 980.30 mGy.cm HISTORY: Acute right upper quadrant abdominal pain ruq abd pain TECHNIQUE: Multiaxial CT images of the abdomen and pelvis were performed following the IV administration of 91 cc of Optiray, A dose lowering technique was utilized adhering to the principles of ALARA. COMPARISON STUDY: 08/20/2015 FINDINGS: Moderate coronary artery calcifications. Clear lung bases. No pneumatosis or pneumoperitoneum. Unremarkable spleen, moderately atrophic pancreas and right adrenal gland. Stable nodular thickening of the left adrenal gland suggestive of hyperplasia. Contracted gallbladder with cholelithiasis. Mild nonspecific intrahepatic and extrahepatic biliary ductal dilation. The common bile duct measures 10 mm. Unremarkable liver. Patent portal vein. Cortical and renal sinus cysts of the kidneys. The largest cyst within the inferior pole right kidney measures 7.2 x 7.7 cm. Mild cortical thinning of the kidneys without hydronephrosis. Unremarkable urinary bladder. Atherosclerosis of the aorta and branch vessels. No lymphadenopathy. Wall thickening of the distal esophagus. The stomach is distended, air and fluid-filled. Duodenal diverticula. Distended air and fluid-filled loops of small bowel measure up to approximately 4 cm. Interloop edema with small volume of abdominal pelvic ascites. Transition point noted within the abdominal lower quadrant with decompressed distal loops. Mild twisting of the right lower quadrant mesentery. Status post right colon resection. Colonic diverticulosis. Unremarkable soft tissues. No acute fracture. IMPRESSION: 1. High-grade small bowel obstruction with transition point within the abdominal right lower quadrant, possibly secondary to an internal hernia. 2. Associated interloop edema with small volume of ascites. No pneumatosis or pneumoperitoneum. 3. Cholelithiasis. 4. Colonic diverticulosis. 5. Additional findings as above. Medications Administered ER Medications Given: NSS 1L bolus Ondansetron 4mg IV Aspirin 324mg PO Zosyn 4.5g IV ECG Rate (beats per minute): 79 Rhythm: normal sinus Findings: + RBBB and + left axis deviation Comparison ECG Date: from (Aug 20, 2015) Change: the following changes noted (TWO now present in anterior leads) Code Status & VTE Plan Code Status Full VTE Prophylaxis Plan VTE Prophylaxis will be ordered: Yes PG Care Time/CCT Total # of Minutes Spent Total Time Spent with Patient: Total time spent is greater than 50% in coordination of care (as documented) at patient's floor/unit and/or counseling patient: Coding Level of Care Code 38006 INT INP/OBS CARE 2/55MIN Diagnoses Small bowel obstruction K56.609 Nausea and vomiting R11.2 GERD (gastroesophageal reflux disease) K21.9 Hypertension I10 Controlled type 2 diabetes mellitus, with long-term current use of insulin E11.9; Z79.4
--- NOTE | 2023-06-26 14:20 | Surgery Consultation ---
Date of Consultation June 26, 2023 Assessment & Plan (1) Small bowel obstruction: (2) Abdominal pain: 88 year-old female who presented to emergency room for nausea, vomiting, and diarrhea. States she has been having some discomfort and taking pepcid for two weeks but started having nausea, vomiting dark brown/black last evening with diarrhea. States she has had no abdominal pain associated with it. no fevers or chills. CT scan showing dilated stomach and small bowel with transition point in the lower abdomen with decompressed distal small bowel and mild mesenteric swirling consistent with high grade SBO and possible internal hernia. Leukocytosis of 15k, lactic acid 2.1, hemodynamically stable, afebrile. Abdomen is soft, nondistended, no peritonitis, rigidity, or guarding on exam. Plan: Dr. Kunz discussed with patient and daughter her imaging findings concernign for SBO with possible internal hernia however she is currently stable with no abdominal tenderness, abdomen is soft and nondistended without peritonitis. Will plan to start with conservative measures with NGT to LIS, bowel rest, IV fluids, pain management and antiemetic as needed. Will re-evaluated tomorrow. If not passing any gas or any return of bowel function , may consider small bowel follow through study to further evaluate Continue medical management would consider IV PPI given vomiting dark brown/black material. Will continue to follow Dr. Kunz has seen and examined patient and agrees with above. History of Present Illness Reason for Consultation: High grade SBO Requesting Physician: Dr. Euceda Attending Physician: Dr. Eric Ramos History of Present Illness Meme is a 88 year-old female with history of DM type 2 , hypertension, dyslipidemia, vitamin D Deficiency, mitral regurgitation, aortic insufficiency, GERD, cystic kidney disease, asthma who presented to emergency department with complaint of nausea, vomiting, and diarrhea. States she has been having some discomfort for past 2 weeks but no significant abdominal pain. Daughter present in room states she has been taking pepcid for 2 weeks. States she was vomiting dark brown/black last evening and she called her doctor. States last bowel movement was last evening, was having diarrhea. No fevers or chills. She states she does not feel bloated . History of colon resection in 1990 for benign polyp and redundant colon, history of appendectomy when she was a senior in high school and history of total hysterectomy. States she had history of a ulcer in the first part of her small bowel back in . ER work-up included labs which showed leukocytosis of 15k, lactic acid at 2.1. CT scan of abdomen/pelvis with iv contrast showing dilated small bowel loops measuring up to 4.0 cm with transition point in right lower abdomen with mild mesenteric swirling consistent with high grade SBO. Currently she states she is not having any abdominal pain. Discomfort from the NGT which was just placed. Passed gas and diarrhea last evening. Allergies Allergy/AdvReac Type Severity Reaction Status Date / Time No Known Allergies Allergy Unknown Verified 05/17/23 09:59 Home Medications Medication Instructions Recorded Confirmed Type cholecalciferol (vitamin D3) 50 2,000 units PO QAM 10/09/19 06/26/23 History mcg (2,000 unit) tablet cyanocobalamin (vitamin B-12) 2,000 mcg PO QAM 10/09/19 06/26/23 History 1,000 mcg tablet multivitamin (Multiple Vitamins 1 tab PO QAM 10/09/19 06/26/23 History tablet) omega-3 acid ethyl esters 1 gram 1 cap PO QAM 10/09/19 06/26/23 History capsule albuterol sulfate 90 mcg/actuation See Rx Instructions inhalation Q6H 07/29/20 06/26/23 Rx aerosol inhaler (Ventolin HFA) PRN shortness of breath or wheezing #18 grams hydrocortisone 2.5 % topical cream 1 applic [place] TID PRN hemorrhoids 01/31/21 06/26/23 Rx with perineal applicator #30 grams diclofenac sodium 1 % topical gel 4 g topical QID PRN Pain 03/23/21 06/26/23 History (Voltaren) hydrochlorothiazide 25 mg tablet 12.5 mg PO QAM 11/16/21 06/26/23 History fluticasone 100 mcg-salmeterol 50 1 inh inhalation BID #60 ea 11/20/21 06/26/23 Rx mcg/dose blistr powdr for inhalation (Advair Diskus) OneTouch Ultra Test (blood sugar #300 ea 01/07/23 06/26/23 Rx diagnostic) insulin syringe-needle U-100 0.3 #100 ea 01/25/23 06/26/23 Rx mL 30 gauge x 1/2" (BD Insulin Syringe Ultra-Fine) simvastatin 10 mg tablet 10 mg PO HS #90 tabs 03/28/23 06/26/23 Rx insulin lispro 100 unit/mL See Rx Instructions subcut DAILY 04/03/23 06/26/23 Rx subcutaneous pen (Humalog KwikPen #15 mL (U-100) Insulin) pen needle, diabetic 32 gauge x #200 ea 05/17/23 06/26/23 Rx 5/32" (BD Ultra-Fine Ashley Pen Needle) insulin NPH isoph U-100 human 100 20 unit (0.2 mL) subcut QPM #10 mL 05/21/23 06/26/23 Rx unit/mL subcutaneous suspension (Humulin N NPH U-100 Insulin (isophane susp)) lisinopril 20 mg tablet 20 mg PO BID 90 days #180 tabs 06/18/23 06/26/23 Rx raloxifene 60 mg tablet 60 mg PO QAM #90 tabs 06/20/23 06/26/23 Rx dapagliflozin propanediol 10 mg 10 mg 06/26/23 History tablet (Farxiga) omeprazole magnesium 20 mg PO DAILY 06/26/23 06/26/23 History Patient History Medical History AI (aortic insufficiency) Asthma Cardiac murmur DM type 2 (diabetes mellitus, type 2) Dyslipidemia GERD (gastroesophageal reflux disease) History of colon polyps [place] (hard of hearing) Hypertension IBS (irritable bowel syndrome) Incontinence of urine Megacolon Osteoarthritis Rectal bleeding Surgical History H/O colonoscopy History of bowel resection History of colonoscopy History of esophagogastroduodenoscopy (EGD) History of lumpectomy S/P appendectomy Status post total abdominal hysterectomy and bilateral salpingo-oophorectomy Family History Mother Cervical cancer Lung cancer Brother Osteoarthritis Father Tuberculosis Other No family history of adverse response to anesthesia Denies family history of Ovarian cancer Prostate cancer Coronary heart disease Breast cancer Colorectal cancer Social History Smoking Status: Never smoker Second Hand Exposure: Yes (as a child); Do You Dip or Chew Tobacco: No; Hx Alcohol Use: Yes Hx Substance Use: No Preferred Language: Faroese Communication Ability: Effective Visual Impairment: No Limitations Hearing Ability: Hard of Hearing Spikemaking Supervisor Required: No Beliefs That Will Affect Care: None marital status: / Current Living Situation: Alone current occupational status: retired Feels Safe at Home: Yes Childhood Exposure to Second-Hand Smoke: Yes Diet: diabetic caffeine: Yes during the past year weight has: remained stable Dental Care, Regularly: Yes Physical Activity Frequency: 5-6 Times per Week Seatbelt Use: always Sunscreen Use: Yes Assistive Devices: None Physical Exam Constitutional: WD/WN, vitals as above cooperative and comfortable; no acute distress, not ill appearing, not diaphoretic and not lethargic Respiratory: normal respiratory effort; no respiratory distress Gastrointestinal (Abdomen): Inspection/Auscultation: abdomen normal to inspection and + abdominal surgical scar (midline laparotomy and right paramidline lower scar); abdomen not distended Percussion/Palpation: abdomen soft; abdomen nontender, no guarding, abdomen not rigid and abdomen not firm Skin: no rashes, warm and dry Psychiatric: A+Ox3, euthymic affect Results & Data Vital Signs (Past 12 Hours) Vital Signs Temp Pulse Pulse Resp BP BP Pulse Ox 06/26/23 13:55 79 16 154/65 H 97 06/26/23 12:02 79 16 146/80 H 96 06/26/23 11:42 88 06/26/23 11:11 95 06/26/23 11:11 36.5 C 82 16 109/87 100 O2 Del Method 06/26/23 13:55 Room Air 06/26/23 12:02 Room Air 06/26/23 11:42 06/26/23 11:11 Room Air 06/26/23 11:11 Room Air Laboratory Results 06/26/23 06/26/23 06/26/23 Range/Units 13:19 11:05 10:53 WBC (4.8-10.8) K/ul RBC (4.20-5.40) M/uL Hgb (12.0-16.0) g/dl Hct (37.0-47.0) % MCV (80.0-100.0) fL MCH (25.0-34.0) pg MCHC (32.0-36.0) g/dL RDW Std Deviation (36.4-46.3) fL RDW Coeff of Reji (11.5-14.5) % Plt Count (130-400) K/uL MPV (9.4-12.4) fL Immature Gran % (Auto) % Neut % (Auto) % Lymph % (Auto) % Sac % (Auto) % Eos % (Auto) % Baso % (Auto) % Neut # (Auto) (1.40-6.50) K/uL Lymph # (Auto) (1.2-3.4) K/uL Sac # (Auto) (0.11-0.59) K/uL Eos # (Auto) (0-0.50) K/uL Baso # (Auto) (0-0.2) K/uL Immature Gran # (Auto) (0.01-0.20) K/uL PT 10.5 (9.0-12.0) Seconds INR 1.0 (0.9-1.1) Sodium (136-145) mmol/L Potassium (3.5-5.1) mmol/L Chloride (98-107) mmol/L Carbon Dioxide (21-32) mmol/L Anion Gap (3-11) BUN (6-23) mg/dl Creatinine (0.6-1.2) mg/dl Est Cr Clr Drug Dosing Est GFR ( Amer) ml/min Est GFR (Non-Af Amer) ml/min BUN/Creatinine Ratio (10-20) Glucose (70-99(Fasting)) mg/dl Lactate 2.1 H* (0.4-2.0) mmol/L Calcium (8.6-10.3) mg/dl Total Bilirubin (0.2-1.0) mg/dl AST (13-39) U/L ALT (7-52) U/L Alkaline Phosphatase (34-104) U/L Troponin I High Sens (0-14) pg/ml Total Protein (6.0-8.3) gm/dl Albumin (3.4-5.0) gm/dl Globulin (2.5-4.0) gm/dl Albumin/Globulin Ratio (0.9-2) Lipase (11-82) U/L Urine Color Yellow Urine Appearance Clear (Clear) Urine pH 5.0 (4.5-7.5) Ur Specific [place] 1.037 H (1.000-1.030) Urine Protein Negative (Negative) Urine Glucose (UA) Negative (Negative) Urine Ketones Trace H (Negative) Urine Blood Negative (Negative) Urine Nitrite Negative (Negative) Urine Bilirubin Negative (Negative) Urine Urobilinogen Negative (Negative) Ur Leukocyte Esterase Negative (Negative) 06/26/23 06/26/23 Range/Units 10:53 10:53 WBC 15.38 H (4.8-10.8) K/ul RBC 4.49 (4.20-5.40) M/uL Hgb 14.2 (12.0-16.0) g/dl Hct 42.2 (37.0-47.0) % MCV 94.0 (80.0-100.0) fL MCH 31.6 (25.0-34.0) pg MCHC 33.6 (32.0-36.0) g/dL RDW Std Deviation 48.9 H (36.4-46.3) fL RDW Coeff of Reji 14.2 (11.5-14.5) % Plt Count 211 (130-400) K/uL MPV 11.7 (9.4-12.4) fL Immature Gran % (Auto) 0.5 % Neut % (Auto) 79.1 % Lymph % (Auto) 13.7 % Sac % (Auto) 6.2 % Eos % (Auto) 0.1 % Baso % (Auto) 0.4 % Neut # (Auto) 12.16 H (1.40-6.50) K/uL Lymph # (Auto) 2.10 (1.2-3.4) K/uL Sac # (Auto) 0.96 H (0.11-0.59) K/uL Eos # (Auto) 0.02 (0-0.50) K/uL Baso # (Auto) 0.06 (0-0.2) K/uL Immature Gran # (Auto) 0.08 (0.01-0.20) K/uL PT (9.0-12.0) Seconds INR (0.9-1.1) Sodium 142 (136-145) mmol/L Potassium 4.1 (3.5-5.1) mmol/L Chloride 109 H (98-107) mmol/L Carbon Dioxide 26 (21-32) mmol/L Anion Gap 7 (3-11) BUN 27 H (6-23) mg/dl Creatinine 1.10 (0.6-1.2) mg/dl Est Cr Clr Drug Dosing Not Reportable Est GFR ( Amer) 51.9 ml/min Est GFR (Non-Af Amer) 44.8 ml/min BUN/Creatinine Ratio 24.5 H (10-20) Glucose 226 H (70-99(Fasting)) mg/dl Lactate (0.4-2.0) mmol/L Calcium 9.6 (8.6-10.3) mg/dl Total Bilirubin 0.7 (0.2-1.0) mg/dl AST 22 (13-39) U/L ALT 22 (7-52) U/L Alkaline Phosphatase 70 (34-104) U/L Troponin I High Sens 16.3 H (0-14) pg/ml Total Protein 6.4 (6.0-8.3) gm/dl Albumin 3.9 (3.4-5.0) gm/dl Globulin 2.5 (2.5-4.0) gm/dl Albumin/Globulin Ratio 1.6 (0.9-2) Lipase 5 L (11-82) U/L Urine Color Urine Appearance (Clear) Urine pH (4.5-7.5) Ur Specific [place] (1.000-1.030) Urine Protein (Negative) Urine Glucose (UA) (Negative) Urine Ketones (Negative) Urine Blood (Negative) Urine Nitrite (Negative) Urine Bilirubin (Negative) Urine Urobilinogen (Negative) Ur Leukocyte Esterase (Negative) Diagnostic Findings ABDOMEN AND PELVIS CT WITH IV CONTRAST CT DOSE: 980.30 mGy.cm HISTORY: Acute right upper quadrant abdominal pain ruq abd pain TECHNIQUE: Multiaxial CT images of the abdomen and pelvis were performed following the IV administration of 91 cc of Optiray, A dose lowering technique was utilized adhering to the principles of ALARA. COMPARISON STUDY: 08/20/2015 FINDINGS: Moderate coronary artery calcifications. Clear lung bases. No pneumatosis or pneumoperitoneum. Unremarkable spleen, moderately atrophic pancreas and right adrenal gland. Stable nodular thickening of the left adrenal gland suggestive of hyperplasia. Contracted gallbladder with cholelithiasis. Mild nonspecific intrahepatic and extrahepatic biliary ductal dilation. The common bile duct measures 10 mm. Unremarkable liver. Patent portal vein. Cortical and renal sinus cysts of the kidneys. The largest cyst within the inferior pole right kidney measures 7.2 x 7.7 cm. Mild cortical thinning of the kidneys without hydronephrosis. Unremarkable urinary bladder. Atherosclerosis of the aorta and branch vessels. No lymphadenopathy. Wall thickening of the distal esophagus. The stomach is distended, air and fluid-filled. Duodenal diverticula. Distended air and fluid-filled loops of small bowel measure up to approximately 4 cm. Interloop edema with small volume of abdominal pelvic ascites. Transition point noted within the abdominal lower quadrant with decompressed distal loops. Mild twisting of the right lower quadrant mesentery. Status post right colon resection. Colonic diverticulosis. Unremarkable soft tissues. No acute fracture. IMPRESSION: 1. High-grade small bowel obstruction with transition point within the abdominal right lower quadrant, possibly secondary to an internal hernia. 2. Associated interloop edema with small volume of ascites. No pneumatosis or pneumoperitoneum. 3. Cholelithiasis. 4. Colonic diverticulosis. 5. Additional findings as above.
--- NOTE | 2023-06-26 15:18 | Electrocardiogram Report ---
Test Reason : Blood Pressure : / mmHG Vent. 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
[2023-06-26] MEDS ORDERED: DEXTROSE 50% 50 ML SYRINGE IV PRN (16:15)
[2023-06-26] MEDS ORDERED: GLUCOSE 10 TAB/TUBE PO PRN (16:15)
[2023-06-26] MEDS ORDERED: GLUCOSE 40% GEL 15 GM TUBE PO PRN (16:15)
[2023-06-26] MEDS ORDERED: GLUCAGON FOR INJ 1 MG VIAL SQ PRN (16:15)
[2023-06-26] MEDS ORDERED: CARBOHYDRATES FOR HYPOGLYCEMIA PO PRN (16:15)
[2023-06-26] MEDS ORDERED: ONDANSETRON INJ 2 MG/ML 2 ML VIAL IV PRN (16:15)
[2023-06-26] MEDS: LACTATED RINGER'S 1,000 ML IV SCH (16:26)
[2023-06-26] MEDS ORDERED: INSULIN ASPART PER UNIT CHARGE SC SCH (16:30)
[2023-06-26] MEDS ORDERED: Nursing to Pharmacy Communication SCH (16:30)
[2023-06-26] MEDS: INSULIN ASPART PER UNIT CHARGE SC SCH ×2 (18:25→23:31)
[2023-06-26] MEDS: PANTOprazole 40 MG in SYRINGE 0 ML IV SCH (20:35)
[2023-06-26] MEDS ORDERED: FLUTICASONE/SALMETEROL 100/50 (ADVAIR) 14 PUFF/1 INHALER INH SCH (21:00)
[2023-06-26] MEDS: ENOXAPARIN INJ 40 MG/0.4 ML SYR SQ SCH (23:28)
[2023-06-26 23:36] LABS: Gastric Occult Blood Positive (Negative); pH Gastric Fluid 7+
[2023-06-27] MEDS: LACTATED RINGER'S 1,000 ML IV SCH ×3 (01:21→21:31)
[2023-06-27] MEDS: INSULIN ASPART PER UNIT CHARGE SC SCH ×4 (06:26→23:57)
[2023-06-27 07:13] LABS: Basophils # (auto) 0.06 K/uL (0-0.2); Basophils % (auto) 0.6 %; Eosinophils # (auto) 0.31 K/uL (0-0.50); Eosinophils % (auto) 2.9 %; Hematocrit (blood only) 36.8 % (37.0-47.0); Hemoglobin 12.1 g/dl (12.0-16.0); Immature Granulocytes # (auto) 0.04 K/uL (0.01-0.20); Immature Granulocytes % (auto) 0.4 %; Lymphocytes # (auto) 1.93 K/uL (1.2-3.4); Lymphocytes % (auto) 18.2 %; Mean Corpuscular Hemoglobin 31.9 pg (25.0-34.0); Mean Corpuscular Hgb Conc 32.9 g/dL (32.0-36.0); Mean Corpuscular Volume 97.1 fL (80.0-100.0); Mean Platelet Volume 11.6 fL (9.4-12.4); Monocytes # (auto) 0.88 K/uL (0.11-0.59); Monocytes % (auto) 8.3 %; Neutrophils # (auto) 7.36 K/uL (1.40-6.50); Neutrophils % (auto) 69.6 %; Platelet Count 164 K/uL (130-400); RDW Coefficient of Variation 14.4 % (11.5-14.5); RDW Standard Deviation 51.1 fL (36.4-46.3); Red Blood Count 3.79 M/uL (4.20-5.40); White Blood Count 10.58 K/ul (4.8-10.8)
[2023-06-27 07:36] LABS: Albumin Globulin Ratio 1.5 (0.9-2); Albumin Level 3.2 gm/dl (3.4-5.0); BUN Creatinine Ratio 19.6 (10-20); Calcium 8.5 mg/dl (8.6-10.3); Creatinine Clr Calc Pharmacy 35.1 ml/min; Est GFR (African American) 60.4 ml/min; Est GFR (Non-African American) 52.1 ml/min; Globulin 2.1 gm/dl (2.5-4.0); Magnesium 1.7 mg/dl (1.7-2.4); Phosphorus 2.6 mg/dl (2.5-4.9); Potassium 3.8 mmol/L (3.5-5.1); Total Protein 5.3 gm/dl (6.0-8.3)
[2023-06-27] MEDS: PANTOprazole 40 MG in SYRINGE 0 ML IV SCH ×2 (08:28→21:23)
[2023-06-27] MEDS: FLUTICASONE/VILANTEROL 100/25MCG 14 PUFFS/INHALER INH SCH (08:28)
--- NOTE | 2023-06-27 09:26 | Surgery Progress Note ---
Date of Service June 27, 2023 Assessment & Plan (1) Small bowel obstruction: (2) Abdominal pain: Plan: NGT with 400 cc output , clear in tubing gastric Hemoccult + hemodynamically stable + flatus abdomen is soft, nondistended, no pain Plan: Will continue NGT to LIS today , as passing gas and no pain do not feel she needs SBFT study continue NPO for now Continue NGT continue medical management encourage ambulation Discussed with Dr. Kunz who has seen patient and agrees with above. Admission and Anticipated Discharge Date Admission Date: June 26, 2023 Subjective states she is feeling fine, no abdominal pain passed a lot of gas this morning, no bowel movement no nausea or vomiting Physical Exam Constitutional: WD/WN, vitals as above cooperative and comfortable; no acute distress and not ill appearing Respiratory: normal respiratory effort; no respiratory distress Gastrointestinal (Abdomen): Inspection/Auscultation: abdomen normal to inspection and + abdominal surgical scar (midline laparotomy and right para- midline ); abdomen not distended Percussion/Palpation: + abdomen tender (very mild in the RLQ on deep palpation) and abdomen soft; no guarding, abdomen not rigid and abdomen not firm NGT with clear output in tubing Skin: no rashes, warm and dry Psychiatric: A+Ox3, euthymic affect Results & Data Vital Signs (Past 12 Hours) Vital Signs Temp Pulse Resp BP Pulse Ox O2 Del Method 06/27/23 07:41 36.8 C 73 18 120/69 97 Room Air Laboratory Results 06/27/23 06/27/23 06/27/23 Range/Units 06:46 06:46 05:54 WBC 10.58 (4.8-10.8) K/ul RBC 3.79 L (4.20-5.40) M/uL Hgb 12.1 (12.0-16.0) g/dl Hct 36.8 L (37.0-47.0) % MCV 97.1 (80.0-100.0) fL MCH 31.9 (25.0-34.0) pg MCHC 32.9 (32.0-36.0) g/dL RDW Std Deviation 51.1 H (36.4-46.3) fL RDW Coeff of Reji 14.4 (11.5-14.5) % Plt Count 164 (130-400) K/uL MPV 11.6 (9.4-12.4) fL Immature Gran % (Auto) 0.4 % Neut % (Auto) 69.6 % Lymph % (Auto) 18.2 % [place] % (Auto) 8.3 % Eos % (Auto) 2.9 % Baso % (Auto) 0.6 % Neut # (Auto) 7.36 H (1.40-6.50) K/uL Lymph # (Auto) 1.93 (1.2-3.4) K/uL [place] # (Auto) 0.88 H (0.11-0.59) K/uL Eos # (Auto) 0.31 (0-0.50) K/uL Baso # (Auto) 0.06 (0-0.2) K/uL Immature Gran # (Auto) 0.04 (0.01-0.20) K/uL PT (9.0-12.0) Seconds INR (0.9-1.1) Sodium 141 (136-145) mmol/L Potassium 3.8 (3.5-5.1) mmol/L Chloride 111 H (98-107) mmol/L Carbon Dioxide 26 (21-32) mmol/L Anion Gap 4 (3-11) BUN 19 (6-23) mg/dl Creatinine 0.97 (0.6-1.2) mg/dl Est Cr Clr Drug Dosing 35.1 Est GFR ( Amer) 60.4 ml/min Est GFR (Non-Af Amer) 52.1 ml/min BUN/Creatinine Ratio 19.6 (10-20) Glucose 132 H (70-99(Fasting)) mg/dl POC Glucose 117 H (70-99) mg/dl Lactate (0.4-2.0) mmol/L Calcium 8.5 L (8.6-10.3) mg/dl Phosphorus 2.6 (2.5-4.9) mg/dl Magnesium 1.7 (1.7-2.4) mg/dl Total Bilirubin 1.0 (0.2-1.0) mg/dl AST 17 (13-39) U/L ALT 15 (7-52) U/L Alkaline Phosphatase 55 (34-104) U/L Troponin I High Sens (0-14) pg/ml Total Protein 5.3 L (6.0-8.3) gm/dl Albumin 3.2 L (3.4-5.0) gm/dl Globulin 2.1 L (2.5-4.0) gm/dl Albumin/Globulin Ratio 1.5 (0.9-2) Lipase (11-82) U/L Urine Color Urine Appearance (Clear) Urine pH (4.5-7.5) Ur Specific [place] (1.000-1.030) Urine Protein (Negative) Urine Glucose (UA) (Negative) Urine Ketones (Negative) Urine Blood (Negative) Urine Nitrite (Negative) Urine Bilirubin (Negative) Urine Urobilinogen (Negative) Ur Leukocyte Esterase (Negative) Gastric Fluid pH Gastric Occult Blood (Negative) 06/26/23 06/26/23 06/26/23 Range/Units 23:28 23:05 18:16 WBC (4.8-10.8) K/ul RBC (4.20-5.40) M/uL Hgb (12.0-16.0) g/dl Hct (37.0-47.0) % MCV (80.0-100.0) fL MCH (25.0-34.0) pg MCHC (32.0-36.0) g/dL RDW Std Deviation (36.4-46.3) fL RDW Coeff of Reji (11.5-14.5) % Plt Count (130-400) K/uL MPV (9.4-12.4) fL Immature Gran % (Auto) % Neut % (Auto) % Lymph % (Auto) % [place] % (Auto) % Eos % (Auto) % Baso % (Auto) % Neut # (Auto) (1.40-6.50) K/uL Lymph # (Auto) (1.2-3.4) K/uL [place] # (Auto) (0.11-0.59) K/uL Eos # (Auto) (0-0.50) K/uL Baso # (Auto) (0-0.2) K/uL Immature Gran # (Auto) (0.01-0.20) K/uL PT (9.0-12.0) Seconds INR (0.9-1.1) Sodium (136-145) mmol/L Potassium (3.5-5.1) mmol/L Chloride (98-107) mmol/L Carbon Dioxide (21-32) mmol/L Anion Gap (3-11) BUN (6-23) mg/dl Creatinine (0.6-1.2) mg/dl Est Cr Clr Drug Dosing Est GFR ( Amer) ml/min Est GFR (Non-Af Amer) ml/min BUN/Creatinine Ratio (10-20) Glucose (70-99(Fasting)) mg/dl POC Glucose 130 H 138 H (70-99) mg/dl Lactate (0.4-2.0) mmol/L Calcium (8.6-10.3) mg/dl Phosphorus (2.5-4.9) mg/dl Magnesium (1.7-2.4) mg/dl Total Bilirubin (0.2-1.0) mg/dl AST (13-39) U/L ALT (7-52) U/L Alkaline Phosphatase (34-104) U/L Troponin I High Sens (0-14) pg/ml Total Protein (6.0-8.3) gm/dl Albumin (3.4-5.0) gm/dl Globulin (2.5-4.0) gm/dl Albumin/Globulin Ratio (0.9-2) Lipase (11-82) U/L Urine Color Urine Appearance (Clear) Urine pH (4.5-7.5) Ur Specific [place] (1.000-1.030) Urine Protein (Negative) Urine Glucose (UA) (Negative) Urine Ketones (Negative) Urine Blood (Negative) Urine Nitrite (Negative) Urine Bilirubin (Negative) Urine Urobilinogen (Negative) Ur Leukocyte Esterase (Negative) Gastric Fluid pH 7+ Gastric Occult Blood Positive A (Negative) 06/26/23 06/26/23 06/26/23 Range/Units 13:19 11:05 10:53 WBC (4.8-10.8) K/ul RBC (4.20-5.40) M/uL Hgb (12.0-16.0) g/dl Hct (37.0-47.0) % MCV (80.0-100.0) fL MCH (25.0-34.0) pg MCHC (32.0-36.0) g/dL RDW Std Deviation (36.4-46.3) fL RDW Coeff of Reji (11.5-14.5) % Plt Count (130-400) K/uL MPV (9.4-12.4) fL Immature Gran % (Auto) % Neut % (Auto) % Lymph % (Auto) % [place] % (Auto) % Eos % (Auto) % Baso % (Auto) % Neut # (Auto) (1.40-6.50) K/uL Lymph # (Auto) (1.2-3.4) K/uL [place] # (Auto) (0.11-0.59) K/uL Eos # (Auto) (0-0.50) K/uL Baso # (Auto) (0-0.2) K/uL Immature Gran # (Auto) (0.01-0.20) K/uL PT 10.5 (9.0-12.0) Seconds INR 1.0 (0.9-1.1) Sodium (136-145) mmol/L Potassium (3.5-5.1) mmol/L Chloride (98-107) mmol/L Carbon Dioxide (21-32) mmol/L Anion Gap (3-11) BUN (6-23) mg/dl Creatinine (0.6-1.2) mg/dl Est Cr Clr Drug Dosing Est GFR ( Amer) ml/min Est GFR (Non-Af Amer) ml/min BUN/Creatinine Ratio (10-20) Glucose (70-99(Fasting)) mg/dl POC Glucose (70-99) mg/dl Lactate 2.1 H* (0.4-2.0) mmol/L Calcium (8.6-10.3) mg/dl Phosphorus (2.5-4.9) mg/dl Magnesium (1.7-2.4) mg/dl Total Bilirubin (0.2-1.0) mg/dl AST (13-39) U/L ALT (7-52) U/L Alkaline Phosphatase (34-104) U/L Troponin I High Sens (0-14) pg/ml Total Protein (6.0-8.3) gm/dl Albumin (3.4-5.0) gm/dl Globulin (2.5-4.0) gm/dl Albumin/Globulin Ratio (0.9-2) Lipase (11-82) U/L Urine Color Yellow Urine Appearance Clear (Clear) Urine pH 5.0 (4.5-7.5) Ur Specific [place] 1.037 H (1.000-1.030) Urine Protein Negative (Negative) Urine Glucose (UA) Negative (Negative) Urine Ketones Trace H (Negative) Urine Blood Negative (Negative) Urine Nitrite Negative (Negative) Urine Bilirubin Negative (Negative) Urine Urobilinogen Negative (Negative) Ur Leukocyte Esterase Negative (Negative) Gastric Fluid pH Gastric Occult Blood (Negative) 06/26/23 06/26/23 Range/Units 10:53 10:53 WBC 15.38 H (4.8-10.8) K/ul RBC 4.49 (4.20-5.40) M/uL Hgb 14.2 (12.0-16.0) g/dl Hct 42.2 (37.0-47.0) % MCV 94.0 (80.0-100.0) fL MCH 31.6 (25.0-34.0) pg MCHC 33.6 (32.0-36.0) g/dL RDW Std Deviation 48.9 H (36.4-46.3) fL RDW Coeff of Reji 14.2 (11.5-14.5) % Plt Count 211 (130-400) K/uL MPV 11.7 (9.4-12.4) fL Immature Gran % (Auto) 0.5 % Neut % (Auto) 79.1 % Lymph % (Auto) 13.7 % [place] % (Auto) 6.2 % Eos % (Auto) 0.1 % Baso % (Auto) 0.4 % Neut # (Auto) 12.16 H (1.40-6.50) K/uL Lymph # (Auto) 2.10 (1.2-3.4) K/uL [place] # (Auto) 0.96 H (0.11-0.59) K/uL Eos # (Auto) 0.02 (0-0.50) K/uL Baso # (Auto) 0.06 (0-0.2) K/uL Immature Gran # (Auto) 0.08 (0.01-0.20) K/uL PT (9.0-12.0) Seconds INR (0.9-1.1) Sodium 142 (136-145) mmol/L Potassium 4.1 (3.5-5.1) mmol/L Chloride 109 H (98-107) mmol/L Carbon Dioxide 26 (21-32) mmol/L Anion Gap 7 (3-11) BUN 27 H (6-23) mg/dl Creatinine 1.10 (0.6-1.2) mg/dl Est Cr Clr Drug Dosing Not Reportable Est GFR ( Amer) 51.9 ml/min Est GFR (Non-Af Amer) 44.8 ml/min BUN/Creatinine Ratio 24.5 H (10-20) Glucose 226 H (70-99(Fasting)) mg/dl POC Glucose (70-99) mg/dl Lactate (0.4-2.0) mmol/L Calcium 9.6 (8.6-10.3) mg/dl Phosphorus (2.5-4.9) mg/dl Magnesium (1.7-2.4) mg/dl Total Bilirubin 0.7 (0.2-1.0) mg/dl AST 22 (13-39) U/L ALT 22 (7-52) U/L Alkaline Phosphatase 70 (34-104) U/L Troponin I High Sens 16.3 H (0-14) pg/ml Total Protein 6.4 (6.0-8.3) gm/dl Albumin 3.9 (3.4-5.0) gm/dl Globulin 2.5 (2.5-4.0) gm/dl Albumin/Globulin Ratio 1.6 (0.9-2) Lipase 5 L (11-82) U/L Urine Color Urine Appearance (Clear) Urine pH (4.5-7.5) Ur Specific [place] (1.000-1.030) Urine Protein (Negative) Urine Glucose (UA) (Negative) Urine Ketones (Negative) Urine Blood (Negative) Urine Nitrite (Negative) Urine Bilirubin (Negative) Urine Urobilinogen (Negative) Ur Leukocyte Esterase (Negative) Gastric Fluid pH Gastric Occult Blood (Negative)
--- NOTE | 2023-06-27 11:35 | Hospitalist Progress Note ---
Date of Service June 27, 2023 Assessment & Plan (1) Small bowel obstruction: Plan: Probably from intra-abdominal adhesions. Nausea and vomiting have resolved with NG tube placement. She is passing flatus. Surgery consultation and recommendations appreciated. I suspect the NG tube will be removed tomorrow barring any unforeseen complications and she will be started on a clear liquid diet. (2) Nausea and vomiting: Plan: Resolved after placement of NG tube. Supportive care. Gastroccult is positive but this could be from the NG tube itself. No evidence of GI bleeding (3) GERD (gastroesophageal reflux disease): Plan: Stable. Currently on pantoprazole 40mg IV BID (4) Hypertension: Plan: Usual oral medications are on hold. Will use intravenous hydralazine as needed (5) Controlled type 2 diabetes mellitus, with long-term current use of insulin: Plan: Currently NPO. Sliding scale coverage at this time. Plan Hopeful discharge back to home soon Admission and Anticipated Discharge Date Admission Date: June 26, 2023 Subjective Alert and oriented. Pleasant. Surgery entry noted. She is passing gas. Abdomen is not distended. I suspect the NG tube will be removed tomorrow and she will be started on a clear liquid diet. I asked her if I needed to call her daughter and she said no. Review of Systems Review of Systems: Constitutional-no fever or chills ENT-no blurred vision, no double vision, no epistaxis, no sore throat Respiratory-no cough, no wheezing, no shortness of breath Cardiac-no palpitations, no chest pain, no syncope GI-nausea and vomiting have resolved after placement of NG tube. She is passing flatus. -no urinary retention, no urinary incontinence, no dysuria, no hematuria Musculoskeletal-no joint pain, no muscle tenderness Skin-no bruising, no rashes, no pruritus Neuro-no isolated weakness, no paresthesia, no weakness Psych-no depression, no anxiety Physical Exam Physical Exam: General-alert and oriented x3, no fevers, no chills HEENT-head atraumatic and normocephalic, nasogastric tube is in place, pupils equal and reactive to light, extraocular muscles intact Neck-no lymphadenopathy or thyromegaly, trachea midline Chest-clear to auscultation percussion. No rales wheezing or rhonchi Cardiac-regular rate and rhythm, normal S1 and S2 Abdomen-normal bowel sounds, nontender, no hepatosplenomegaly. No distention Extremities-no cyanosis, clubbing, or edema Neuro-cranial nerves II through XII intact, motor and sensory function within normal limits, strength symmetrical , no focal deficits Psych-normal affect, normal mood Results & Data Results & Data Vital Signs (Past 12 Hours) Vital Signs Temp Pulse Resp BP Pulse Ox O2 Del Method 06/27/23 07:41 36.8 C 73 18 120/69 97 Room Air Laboratory Results 06/27/23 06:46 06/27/23 06:46 PG Care Time/CCT Total # of Minutes Spent Total Time Spent with Patient: Total time spent is greater than 50% in coordination of care (as documented) at patient's floor/unit and/or counseling patient: Coding Level of Care Code 22932 SUB INP/OBS CARE 3/50MIN Diagnoses Small bowel obstruction K56.609 Nausea and vomiting R11.2 GERD (gastroesophageal reflux disease) K21.9 Hypertension I10 Controlled type 2 diabetes mellitus, with long-term current use of insulin E11.9; Z79.4
[2023-06-27] MEDS: ENOXAPARIN INJ 40 MG/0.4 ML SYR SQ SCH (21:23)
[2023-06-28] MEDS: INSULIN ASPART PER UNIT CHARGE SC SCH ×3 (06:22→17:59)
[2023-06-28 07:07] LABS: BUN Creatinine Ratio 16.7 (10-20); Calcium 8.3 mg/dl (8.6-10.3); Creatinine Clr Calc Pharmacy 37.9 ml/min; Est GFR (African American) 66.2 ml/min; Est GFR (Non-African American) 57.1 ml/min; Potassium 3.8 mmol/L (3.5-5.1)
[2023-06-28] MEDS: FLUTICASONE/VILANTEROL 100/25MCG 14 PUFFS/INHALER INH SCH (08:45)
[2023-06-28] MEDS: LACTATED RINGER'S 1,000 ML IV SCH (08:46)
[2023-06-28] MEDS: PANTOprazole 40 MG in SYRINGE 0 ML IV SCH ×2 (08:46→20:50)
[2023-06-28 09:20] LABS: Basophils # (auto) 0.05 K/uL (0-0.2); Basophils % (auto) 0.5 %; Eosinophils # (auto) 0.21 K/uL (0-0.50); Eosinophils % (auto) 2.1 %; Hematocrit (blood only) 33.9 % (37.0-47.0); Hemoglobin 11.2 g/dl (12.0-16.0); Immature Granulocytes # (auto) 0.04 K/uL (0.01-0.20); Immature Granulocytes % (auto) 0.4 %; Lymphocytes # (auto) 1.84 K/uL (1.2-3.4); Mean Corpuscular Volume 96.9 fL (80.0-100.0); Monocytes # (auto) 0.67 K/uL (0.11-0.59); Monocytes % (auto) 6.6 %; Neutrophils % (auto) 72.4 %; Platelet Count 150 K/uL (130-400); RDW Coefficient of Variation 14.3 % (11.5-14.5); RDW Standard Deviation 51.1 fL (36.4-46.3); White Blood Count 10.21 K/ul (4.8-10.8)
[2023-06-28] MEDS: D5W AND NSS 1,000 ML IV SCH ×2 (10:14→23:36)
[2023-06-28] MEDS ORDERED: ACETAMINOPHEN 1,000 MG/100 ML VIAL IV PRN (10:26)
--- NOTE | 2023-06-28 11:11 | XRay Report ---
KUB CLINICAL HISTORY: Small bowel obstruction. FINDINGS: 2 AP, portable, supine abdominal radiographs are correlated with abdominal CT dated 06/26/20 23. An enteric tube is in place and projects below the diaphragm over the mid stomach. Suture materia l projects over the right midabdomen. There is persistent gaseous distention of the small bowel loops . This likely represents persistent obstruction. This is at least partial, as both gas and stool are noted in the colon. No evidence of intraperitoneal free air is seen on these supine images. There are no abnormal abdominal calcifications. Phleboliths are seen in the pelvis. The skeletal structures ar e osteopenic and appear intact. IMPRESSION: 1. An enteric tube has been placed as above. 2. Persistent small bowel obstruction as above. Electronically signed by: Michael Mckenzie M.D. 06/28/2023 11:10 AM
--- NOTE | 2023-06-28 12:09 | Surgery Progress Note ---
Date of Service June 28, 2023 Assessment & Plan (1) Small bowel obstruction: (2) Abdominal pain: Plan: NGT with 250 cc output in last 8 hours + flatus abdomen is soft, nondistended, no pain Plan: NGT clamp trial and check residual in 4 hours continue NPO for now continue medical management encouraged ambulation to increase GI motility Dr. Kunz has seen and examined pt, agrees with above. Admission and Anticipated Discharge Date Admission Date: June 26, 2023 Subjective not having a good morning, having swelling and pain in right hand, cannot make a fist due to swelling, IV in the Right antecubital fossa infiltrated will need replaced no abdominal pain passed gas this morning no bowel movement no nausea or vomiting Physical Exam Constitutional: WD/WN, vitals as above cooperative and comfortable; no acute distress and not ill appearing Respiratory: normal respiratory effort; no respiratory distress Gastrointestinal (Abdomen): Inspection/Auscultation: abdomen normal to inspection, + abdominal surgical scar (midline laparotomy and right paramidline) and + hypoactive bowel sounds; abdomen not distended and + abnormal bowel sounds Percussion/Palpation: abdomen soft; abdomen nontender, no guarding and abdomen not rigid NGT with bilious/dark green output in cannister Musculoskeletal: Right hand is swollen to fingertips, unable to make a fist or trimmer sawyer finger, no overt swelling in the RUE, IV in antecubital fossa infiltrated and easily removed. Skin: no rashes, warm and dry Psychiatric: Orientation: alert and oriented x 3 Results & Data Vital Signs (Past 12 Hours) Vital Signs Temp Pulse Resp BP Pulse Ox O2 Del Method 06/28/23 07:51 36.6 C 66 16 124/67 96 Room Air Laboratory Results 06/28/23 06/28/23 06/28/23 Range/Units 12:04 06:21 06:21 WBC 10.21 (4.8-10.8) K/ul RBC 3.50 L (4.20-5.40) M/uL Hgb 11.2 L (12.0-16.0) g/dl Hct 33.9 L (37.0-47.0) % MCV 96.9 (80.0-100.0) fL MCH 32.0 (25.0-34.0) pg MCHC 33.0 (32.0-36.0) g/dL RDW Std Deviation 51.1 H (36.4-46.3) fL RDW Coeff of Reji 14.3 (11.5-14.5) % Plt Count 150 (130-400) K/uL MPV 12.0 (9.4-12.4) fL Immature Gran % (Auto) 0.4 % Neut % (Auto) 72.4 % Lymph % (Auto) 18.0 % [place] % (Auto) 6.6 % Eos % (Auto) 2.1 % Baso % (Auto) 0.5 % Neut # (Auto) 7.40 H (1.40-6.50) K/uL Lymph # (Auto) 1.84 (1.2-3.4) K/uL [place] # (Auto) 0.67 H (0.11-0.59) K/uL Eos # (Auto) 0.21 (0-0.50) K/uL Baso # (Auto) 0.05 (0-0.2) K/uL Immature Gran # (Auto) 0.04 (0.01-0.20) K/uL Sodium 143 (136-145) mmol/L Potassium 3.8 (3.5-5.1) mmol/L Chloride 111 H (98-107) mmol/L Carbon Dioxide 28 (21-32) mmol/L Anion Gap 4 (3-11) BUN 15 (6-23) mg/dl Creatinine 0.90 (0.6-1.2) mg/dl Est Cr Clr Drug Dosing 37.9 ml/min Est GFR ( Amer) 66.2 ml/min Est GFR (Non-Af Amer) 57.1 ml/min BUN/Creatinine Ratio 16.7 (10-20) Glucose 92 (70-99(Fasting)) mg/dl POC Glucose 98 (70-99) mg/dl Calcium 8.3 L (8.6-10.3) mg/dl 06/28/23 06/27/23 06/27/23 Range/Units 06:19 23:46 17:58 WBC (4.8-10.8) K/ul RBC (4.20-5.40) M/uL Hgb (12.0-16.0) g/dl Hct (37.0-47.0) % MCV (80.0-100.0) fL MCH (25.0-34.0) pg MCHC (32.0-36.0) g/dL RDW Std Deviation (36.4-46.3) fL RDW Coeff of Reji (11.5-14.5) % Plt Count (130-400) K/uL MPV (9.4-12.4) fL Immature Gran % (Auto) % Neut % (Auto) % Lymph % (Auto) % [place] % (Auto) % Eos % (Auto) % Baso % (Auto) % Neut # (Auto) (1.40-6.50) K/uL Lymph # (Auto) (1.2-3.4) K/uL [place] # (Auto) (0.11-0.59) K/uL Eos # (Auto) (0-0.50) K/uL Baso # (Auto) (0-0.2) K/uL Immature Gran # (Auto) (0.01-0.20) K/uL Sodium (136-145) mmol/L Potassium (3.5-5.1) mmol/L Chloride (98-107) mmol/L Carbon Dioxide (21-32) mmol/L Anion Gap (3-11) BUN (6-23) mg/dl Creatinine (0.6-1.2) mg/dl Est Cr Clr Drug Dosing ml/min Est GFR ( Amer) ml/min Est GFR (Non-Af Amer) ml/min BUN/Creatinine Ratio (10-20) Glucose (70-99(Fasting)) mg/dl POC Glucose 82 91 96 (70-99) mg/dl Calcium (8.6-10.3) mg/dl 06/27/23 Range/Units 12:14 WBC (4.8-10.8) K/ul RBC (4.20-5.40) M/uL Hgb (12.0-16.0) g/dl Hct (37.0-47.0) % MCV (80.0-100.0) fL MCH (25.0-34.0) pg MCHC (32.0-36.0) g/dL RDW Std Deviation (36.4-46.3) fL RDW Coeff of Reji (11.5-14.5) % Plt Count (130-400) K/uL MPV (9.4-12.4) fL Immature Gran % (Auto) % Neut % (Auto) % Lymph % (Auto) % [place] % (Auto) % Eos % (Auto) % Baso % (Auto) % Neut # (Auto) (1.40-6.50) K/uL Lymph # (Auto) (1.2-3.4) K/uL [place] # (Auto) (0.11-0.59) K/uL Eos # (Auto) (0-0.50) K/uL Baso # (Auto) (0-0.2) K/uL Immature Gran # (Auto) (0.01-0.20) K/uL Sodium (136-145) mmol/L Potassium (3.5-5.1) mmol/L Chloride (98-107) mmol/L Carbon Dioxide (21-32) mmol/L Anion Gap (3-11) BUN (6-23) mg/dl Creatinine (0.6-1.2) mg/dl Est Cr Clr Drug Dosing ml/min Est GFR ( Amer) ml/min Est GFR (Non-Af Amer) ml/min BUN/Creatinine Ratio (10-20) Glucose (70-99(Fasting)) mg/dl POC Glucose 107 H (70-99) mg/dl Calcium (8.6-10.3) mg/dl Diagnostic Findings KUB CLINICAL HISTORY: Small bowel obstruction. FINDINGS: 2 AP, portable, supine abdominal radiographs are correlated with abdominal CT dated 06/26/2023. An enteric tube is in place and projects below the diaphragm over the mid stomach. Suture material projects over the right midabdomen. There is persistent gaseous distention of the small bowel loops. This likely represents persistent obstruction. This is at least partial, as both gas and stool are noted in the colon. No evidence of intraperitoneal free air is seen on these supine images. There are no abnormal abdominal calcifications. Phleboliths are seen in the pelvis. The skeletal structures are osteopenic and appear intact. IMPRESSION: 1. An enteric tube has been placed as above. 2. Persistent small bowel obstruction as above.
--- NOTE | 2023-06-28 15:07 | Hospitalist Progress Note ---
Date of Service June 28, 2023 Assessment & Plan (1) Small bowel obstruction: Plan: Probably from intra-abdominal adhesions. Nausea and vomiting have resolved with NG tube placement. She is passing flatus. Surgery consultation and recommendations appreciated. KUB today, June 28, continues to show evidence of small bowel obstruction. We will repeat x-rays again tomorrow. (2) Nausea and vomiting: Plan: Resolved after placement of NG tube. Supportive care. Gastroccult is positive but this could be from the NG tube itself. No evidence of GI bleeding (3) Tenosynovitis of right wrist: Plan: Parenteral methylprednisolone ordered. We will follow (4) GERD (gastroesophageal reflux disease): Plan: Stable. Currently on pantoprazole 40mg IV BID (5) Hypertension: Plan: Usual oral medications are on hold. Will use intravenous hydralazine as needed (6) Controlled type 2 diabetes mellitus, with long-term current use of insulin: Plan: Currently NPO. Sliding scale coverage at this time. Plan Hopeful discharge back to home soon Admission and Anticipated Discharge Date Admission Date: June 26, 2023 Subjective She is complaining of right wrist pain. She has tenosynovitis on examination. Parenteral steroid therapy ordered. No previous history of gout and I doubt if this is an acute gout attack. KUB today continues to reveal evidence of small bowel obstruction. She remains n.p.o. with NG tube in place. We will repeat KUB again tomorrow, June 29 Review of Systems Review of Systems: Constitutional-no fever or chills ENT-no blurred vision, no double vision, no epistaxis, no sore throat Respiratory-no cough, no wheezing, no shortness of breath Cardiac-no palpitations, no chest pain, no syncope GI-nausea and vomiting have resolved after placement of NG tube. She is passing flatus. Bowel sounds are hypoactive but present. No distention -no urinary retention, no urinary incontinence, no dysuria, no hematuria Musculoskeletal-right wrist exquisitely tender with limited range of motion and erythema noted Skin-no bruising, no rashes, no pruritus Neuro-no isolated weakness, no paresthesia, no weakness Psych-no depression, no anxiety Physical Exam Physical Exam: General-alert and oriented x3, no fevers, no chills HEENT-head atraumatic and normocephalic, nasogastric tube is in place, pupils equal and reactive to light, extraocular muscles intact Neck-no lymphadenopathy or thyromegaly, trachea midline Chest-clear to auscultation percussion. No rales wheezing or rhonchi Cardiac-regular rate and rhythm, normal S1 and S2 Abdomen-normal bowel sounds, nontender, no hepatosplenomegaly. No distention Extremities-right wrist tenosynovitis evident Neuro-cranial nerves II through XII intact, motor and sensory function within n ormal limits, strength symmetrical , no focal deficits Psych-normal affect, normal mood Results & Data Results & Data Vital Signs (Past 12 Hours) Vital Signs Temp Pulse Resp BP Pulse Ox O2 Del Method 06/28/23 14:42 36.6 C 69 16 124/67 98 Room Air 06/28/23 07:51 36.6 C 66 16 124/67 96 Room Air Laboratory Results 06/28/23 06:21 06/28/23 06:21 PG Care Time/CCT Total # of Minutes Spent Total Time Spent with Patient: Total time spent is greater than 50% in coordination of care (as documented) at patient's floor/unit and/or counseling patient: Coding Level of Care Code 50469 SUB INP/OBS CARE 3/50MIN Diagnoses Small bowel obstruction K56.609 Nausea and vomiting R11.2 Tenosynovitis of right wrist M65.9 GERD (gastroesophageal reflux disease) K21.9 Hypertension I10 Controlled type 2 diabetes mellitus, with long-term current use of insulin E11.9; Z79.4
[2023-06-28] MEDS: methylPREDNISolone 60 MG in SYRINGE 0 ML IV SCH (17:59)
[2023-06-28] MEDS: ENOXAPARIN INJ 40 MG/0.4 ML SYR SQ SCH (21:33)
[2023-06-28] MEDS ORDERED: Nursing to Pharmacy Communication SCH (21:45)
[2023-06-29] MEDS: INSULIN ASPART PER UNIT CHARGE SC SCH ×5 (00:29→21:29)
[2023-06-29] MEDS: methylPREDNISolone 60 MG in SYRINGE 0 ML IV SCH ×3 (02:35→17:49)
--- NOTE | 2023-06-29 06:24 | Surgery Progress Note ---
Date of Service June 29, 2023 Assessment & Plan (1) Small bowel obstruction: Plan: Patient is admitted on the hospitalist service. We recommend continuing care as follows: Provide analgesics provide antiemetics As the patient's NG tube is currently clamped and she has been passing flatus I have asked the assembler 1st shift RN to place her G-tube back to suction temporarily to check for any residual. Based on this reading consideration may be given to removing the NG tube and advancing her diet slowly beginning with clear liquids Ambulation has been encouraged Check a.m. labs when available Primary service has ordered a KUB and we will check this when available Admission and Anticipated Discharge Date Admission Date: June 26, 2023 Supervising Physician Co-Signing Physician Notes Patient seen and examined, labs and imaging reviewed, agree with above. Admitted with SBO, has been passing flatus. NG tube clamped overnight, low residuals, no abdominal pain or nausea or vomiting. On exam she is afebrile with stable vitals, her abdomen is soft, nondistended, nontender. KUB reviewed with slightly improved distention and air in the colon. We will remove NG tube, advance to clear liquid diet. Subjective Patient is resting comfortably in bed. Overnight patient reports she is passing some flatus but has not had a bowel movement. She denies any nausea or vomiting with her NG tube clamped. Physical Exam Gastrointestinal (Abdomen): Bowel sounds are present. Abdomen is soft, nonrigid, nondistended. There is no rebound tenderness or guarding or pain with palpation. Patient has an NG tube in place which is currently clamped. Results & Data Vital Signs (Past 12 Hours) Vital Signs Temp Resp BP Pulse Ox O2 Del Method 06/28/23 22:50 36.9 C 14 126/71 94 Room Air PG Care Time/CCT Total # of Minutes Spent Total Time Spent with Patient: Total time spent is greater than 50% in coordination of care (as documented) at patient's floor/unit and/or counseling patient: Coding Level of Care Code 31146 SUB INP/OBS CARE 12/26MIN Diagnoses Small bowel obstruction K56.609
[2023-06-29] MEDS: PANTOprazole 40 MG in SYRINGE 0 ML IV SCH ×2 (08:27→21:22)
[2023-06-29] MEDS: FLUTICASONE/VILANTEROL 100/25MCG 14 PUFFS/INHALER INH SCH (08:27)
[2023-06-29] MEDS: D5W AND NSS 1,000 ML IV SCH (08:35)
--- NOTE | 2023-06-29 09:32 | XRay Report ---
KUB CLINICAL HISTORY: Small bowel obstruction. FINDINGS: An AP, portable, supine abdominal radiograph is compared to study dated 06/28/2023 and corre lated with abdominal CT dated 06/26/2023. An enteric tube is unchanged in position. Suture material pr ojects over the right midabdomen. There is persistent gaseous distention of the small bowel loops, li mary representing persistent obstruction. This may be partial, as both gas and stool are noted in the colon. Distention of the small bowel loops has decreased from previous. No evidence of intraperitone al free air is seen on this supine image. There are no abnormal abdominal calcifications. Phleboliths are seen in the pelvis. The skeletal structures are osteopenic and appear intact. IMPRESSION: 1. An enteric tube has been placed as above. 2. There is likely persistent small bowel obstruction as above. Distention of the small bowel loops h as improved from yesterday. Electronically signed by: Michael Mckenzie M.D. 06/29/2023 9:30 AM
[2023-06-29 11:39] LABS: Hemoglobin 12.6 g/dl (12.0-16.0); Mean Corpuscular Hemoglobin 32.5 pg (25.0-34.0); Mean Corpuscular Hgb Conc 34.1 g/dL (32.0-36.0); Mean Corpuscular Volume 95.4 fL (80.0-100.0); Mean Platelet Volume 11.8 fL (9.4-12.4); Platelet Count 158 K/uL (130-400); RDW Coefficient of Variation 13.7 % (11.5-14.5); RDW Standard Deviation 48.2 fL (36.4-46.3); Red Blood Count 3.88 M/uL (4.20-5.40); White Blood Count 13.11 K/ul (4.8-10.8)
[2023-06-29 11:59] LABS: BUN Creatinine Ratio 18.5 (10-20); Calcium 8.9 mg/dl (8.6-10.3); Creatinine Clr Calc Pharmacy 37.1 ml/min; Est GFR (African American) 64.4 ml/min; Est GFR (Non-African American) 55.6 ml/min; Potassium 3.9 mmol/L (3.5-5.1)
[2023-06-29 12:02] LABS: Basophils # (auto) 0.01 K/uL (0-0.2); Basophils % (auto) 0.1 %; Immature Granulocytes # (auto) 0.09 K/uL (0.01-0.20); Immature Granulocytes % (auto) 0.7 %; Lymphocytes # (auto) 0.63 K/uL (1.2-3.4); Lymphocytes % (auto) 4.8 %; Monocytes % (auto) 2.3 %; Neutrophils # (auto) 12.08 K/uL (1.40-6.50); Neutrophils % (auto) 92.1 %
--- NOTE | 2023-06-29 14:52 | Hospitalist Progress Note ---
Date of Service June 29, 2023 Assessment & Plan (1) Small bowel obstruction: Plan: Probably from intra-abdominal adhesions. Nausea and vomiting have resolved with NG tube placement. NG tube has since been removed. She is passing flatus. Surgery consultation and recommendations appreciated. KUB today, June 29, shows improvement. She is on a clear liquid diet which will be advanced as tolerated. (2) Nausea and vomiting: Plan: Resolved after placement of NG tube. Remains resolved after NG tube has been removed. Supportive care. Gastroccult is positive but this could be from the NG tube itself. No evidence of GI bleeding (3) Tenosynovitis of right wrist: Plan: Parenteral methylprednisolone resulted in rapid improvement as expected. (4) GERD (gastroesophageal reflux disease): Plan: Stable. Currently on pantoprazole 40mg IV BID (5) Hypertension: Plan: Usual oral medications are on hold. Will use intravenous hydralazine as needed (6) Controlled type 2 diabetes mellitus, with long-term current use of insulin: Plan: Currently on clear liquids. Sliding scale coverage at this time. Plan Hopeful discharge back to home tomorrow, June 30 Admission and Anticipated Discharge Date Admission Date: June 26, 2023 Subjective Alert and oriented. Daughter is at the bedside. KURex looks better today, June 29. The NG tube has been removed. She is now on a clear liquid diet which will be advanced as tolerated. Possible discharge to home tomorrow, June 30 Review of Systems Review of Systems: Constitutional-no fever or chills ENT-no blurred vision, no double vision, no epistaxis, no sore throat Respiratory-no cough, no wheezing, no shortness of breath Cardiac-no palpitations, no chest pain, no syncope GI-NG tube has been removed. No nausea or vomiting. She is passing flatus. Active bowel sounds. No distention -no urinary retention, no urinary incontinence, no dysuria, no hematuria Musculoskeletal-right wrist exquisitely tender with limited range of motion and erythema noted Skin-no bruising, no rashes, no pruritus Neuro-no isolated weakness, no paresthesia, no weakness Psych-no depression, no anxiety Physical Exam Physical Exam: General-alert and oriented x3, no fevers, no chills HEENT-head atraumatic and normocephalic, nasogastric tube has been removed, pupils equal and reactive to light, extraocular muscles intact Neck-no lymphadenopathy or thyromegaly, trachea midline Chest-clear to auscultation percussion. No rales wheezing or rhonchi Cardiac-regular rate and rhythm, normal S1 and S2 Abdomen-normal bowel sounds, nontender, no hepatosplenomegaly. No distention Extremities-right wrist tenosynovitis evident Neuro-cranial nerves II through XII intact, motor and sensory function within normal limits, strength symmetrical , no focal deficits Psych-normal affect, normal mood Results & Data Results & Data Vital Signs (Past 12 Hours) Vital Signs Temp Pulse Resp BP Pulse Ox O2 Del Method 06/29/23 07:50 36.4 C L 50 L 16 113/55 L 95 Room Air Laboratory Results 06/29/23 11:21 06/29/23 11:21 PG Care Time/CCT Total # of Minutes Spent Total Time Spent with Patient: Total time spent is greater than 50% in coordination of care (as documented) at patient's floor/unit and/or counseling patient: Coding Level of Care Code 04085 SUB INP/OBS CARE 3/50MIN Diagnoses Small bowel obstruction K56.609 Nausea and vomiting R11.2 Tenosynovitis of right wrist M65.9 GERD (gastroesophageal reflux disease) K21.9 Hypertension I10 Controlled type 2 diabetes mellitus, with long-term current use of insulin E11.9; Z79.4
[2023-06-29] MEDS ORDERED: Nursing to Pharmacy Communication SCH (19:15)
[2023-06-29] MEDS: ENOXAPARIN INJ 40 MG/0.4 ML SYR SQ SCH (21:21)
[2023-06-30] MEDS: methylPREDNISolone 60 MG in SYRINGE 0 ML IV SCH (01:29)
--- NOTE | 2023-06-30 06:00 | Surgery Progress Note ---
Date of Service June 30, 2023 Assessment & Plan (1) Small bowel obstruction: Plan: Patient has been admitted on the hospitalist service. From a surgical perspective we recommend continuing care as follows: Provide analgesics and antiemetics as needed Patient has tolerated removal of NG tube and is tolerating full liquids. Consideration be given to advancing diet further Check a.m. labs when available Encourage ambulation Admission and Anticipated Discharge Date Admission Date: June 26, 2023 Supervising Physician Co-Signing Physician Notes Patient seen and examined, labs reviewed, agree with above. Admitted with SBO, has been passing flatus and had a bowel movement. NG tube removed yesterday, tolerated liquids. On exam she is afebrile with stable vitals, her abdomen is soft, nondistended, nontender. May advance to low fiber diet, if tolerates okay for discharge from general surgery standpoint. Subjective Patient notes over the past 24 hours she has had a bowel movement and is passing gas. She denies any abdominal pain and has not had any nausea or vomiting. She has tolerated full liquids thus far. Physical Exam Gastrointestinal (Abdomen): Abdomen is soft, nondistended, nonrigid. There is no pain with palpation. Results & Data Vital Signs (Past 12 Hours) Vital Signs Temp Pulse Resp BP Pulse Ox O2 Del Method 06/29/23 21:09 37.1 C 56 L 16 112/65 96 Room Air PG Care Time/CCT Total # of Minutes Spent Total Time Spent with Patient: Total time spent is greater than 50% in coordination of care (as documented) at patient's floor/unit and/or counseling patient: Coding Level of Care Code 70561 SUB INP/OBS CARE 12/26MIN Diagnoses Small bowel obstruction K56.609
[2023-06-30 06:23] LABS: Basophils # (auto) 0.02 K/uL (0-0.2); Basophils % (auto) 0.1 %; Hematocrit (blood only) 33.3 % (37.0-47.0); Hemoglobin 11.3 g/dl (12.0-16.0); Immature Granulocytes % (auto) 0.7 %; Lymphocytes # (auto) 1.17 K/uL (1.2-3.4); Lymphocytes % (auto) 7.7 %; Mean Corpuscular Hemoglobin 32.2 pg (25.0-34.0); Mean Corpuscular Hgb Conc 33.9 g/dL (32.0-36.0); Mean Corpuscular Volume 94.9 fL (80.0-100.0); Mean Platelet Volume 12.2 fL (9.4-12.4); Monocytes # (auto) 0.61 K/uL (0.11-0.59); Neutrophils # (auto) 13.22 K/uL (1.40-6.50); Neutrophils % (auto) 87.5 %; Platelet Count 154 K/uL (130-400); RDW Coefficient of Variation 13.9 % (11.5-14.5); RDW Standard Deviation 48.2 fL (36.4-46.3); Red Blood Count 3.51 M/uL (4.20-5.40); White Blood Count 15.12 K/ul (4.8-10.8)
[2023-06-30 06:42] LABS: BUN Creatinine Ratio 21.2 (10-20); Calcium 8.6 mg/dl (8.6-10.3); Creatinine Clr Calc Pharmacy 40.1 ml/min; Est GFR (African American) 70.9 ml/min; Est GFR (Non-African American) 61.2 ml/min; Potassium 3.8 mmol/L (3.5-5.1)
[2023-06-30] MEDS: D5W AND NSS 1,000 ML IV SCH (07:23)
[2023-06-30] MEDS: PANTOprazole 40 MG in SYRINGE 0 ML IV SCH (08:15)
[2023-06-30] MEDS: FLUTICASONE/VILANTEROL 100/25MCG 14 PUFFS/INHALER INH SCH (08:16)
[2023-06-30] MEDS: INSULIN ASPART PER UNIT CHARGE SC SCH (08:21)
--- NOTE | 2023-06-30 11:54 | Discharge Summary ---
Date of Service June 30, 2023 Admission HPI Per Admitting Provider Meme Thomas is an 88 year old female who presents to the ER with diarrhea, emesis and abdominal discomfort. She reports two weeks of RUQ, intermittent, abdominal discomfort. Last night however this turned into vomiting and diarrhea. She is a retired nurse and initially felt she could manage this at home but the vomiting persisted to today with abdominal distension and RUQ discomfort (severity 2/10, no radiation) therefore decided to come to the ER. No prior history of small bowel obstruction however she had a prior partial colectomy due to a polyp in 1989 which turned out to be benign. She also reports prior appendectomy in high school. History of GI ulcer in 1979 not requiring a bloood transfusion. Principal Diagnosis Small bowel obstruction, right wrist tenosynovitis Discharge Exam General-alert and oriented x3, no fevers, no chills HEENT-head atraumatic and normocephalic, nasogastric tube has been removed, pupils equal and reactive to light, extraocular muscles intact Neck-no lymphadenopathy or thyromegaly, trachea midline Chest-clear to auscultation percussion. No rales wheezing or rhonchi Cardiac-regular rate and rhythm, normal S1 and S2 Abdomen-normal bowel sounds, nontender, no hepatosplenomegaly. No distention Extremities-right wrist tenosynovitis has improved markedly with steroid therapy Neuro-cranial nerves II through XII intact, motor and sensory function within normal limits, strength symmetrical , no focal deficits Psych-normal affect, normal mood Discharge Data Allergies Allergy/AdvReac Type Severity Reaction Status Date / Time No Known Allergies Allergy Unknown Verified 05/17/23 09:59 Consultations 06/26/23 13:59 ED Decision to Admit Stat 06/26/23 14:08 Consult General Surgery Routine Ordered Studies 06/26/23 11:00 CT Abd and Pelvis [CT abd pelvis IV con only] Stat Hospital Course (1) Small bowel obstruction: Probably from intra-abdominal adhesions. Nausea and vomiting resolved with NG tube placement. NG tube has since been removed. She has had a bowel movement and the diet has been advanced. Appreciate surgery consultation and recommendations. (2) Nausea and vomiting: Resolved. (3) Tenosynovitis of right wrist: Parenteral methylprednisolone resulted in rapid improvement as expected. Steroid therapy discontinued today, June 30 (4) GERD (gastroesophageal reflux disease): Stable. Treated while hospitalized with pantoprazole (5) Hypertension: Usual oral medications have been restarted now that she is taking oral intake. Stable (6) Controlled type 2 diabetes mellitus, with long-term current use of insulin: Stable. Continue current medical management Plan Home today, June 30 Total Time Total Time Spent Total Time Spent (In Minutes): 45 minutes Discharge Plan Discharge Items Patient Disposition: Home - Self-Care Reason For Visit: SMALL BOWEL OBSTRUCTION Discharge Diagnosis: Small bowel obstruction, tenosynovitis right wrist Activity: Resume your previous activity Non-emergency contact: Primary Care Provider Call non-emergency contact if: your symptoms worsen Follow-up/Referrals: Aaron Olivera MD [Primary Care Provider] - Diet: Carb Consistent or DM2 Addtl Attending Provider Instructions: No new medications. Pending Studies at Discharge: No Stand-Alone Forms: My [employer], Smoking Cessation Medications and DC Order Prescriptions: Continued albuterol sulfate [Ventolin HFA] 90 mcg/actuation HFA aerosol inhaler See Rx Instructions INH Q6H PRN (Reason: shortness of breath or wheezing) Qty: 18 5RF Rx Instructions: 2 puffs inhalation every 6 hours PRN; fluticasone propion-salmeterol [Advair Diskus] 100-50 mcg/dose blister with device 1 inh inhalation BID Qty: 60 11RF (DME) OneTouch Ultra Test Strip See Rx Instructions .ROUTE .MEDSUPPLY Qty: 300 1RF Rx Instructions: test 3 times daily (DME) insulin syringe-needle U-100 [BD Insulin Syringe Ultra-Fine] 0.3 mL 30 gauge x 1/2" syringe See Rx Instructions .Route Qty: 100 2RF Rx Instructions: use 1 QD with insulin simvastatin 10 mg tablet 10 mg PO HS Qty: 90 3RF insulin lispro [Humalog KwikPen Insulin] 100 unit/mL insulin pen See Rx Instructions subcut DAILY Qty: 15 2RF Rx Instructions: 3-5 units before supper for BG >140. subcutaneously daily; 3-5 units before supper for BG >140. subcutaneously Humulin N NPH U-100 Insulin 100 unit/mL suspension 20 unit subcut QPM Qty: 10 3RF lisinopril 20 mg tablet 20 mg PO BID 90 Days Qty: 180 3RF raloxifene 60 mg tablet 60 mg PO QAM Qty: 90 3RF cyanocobalamin (vitamin B-12) 1,000 mcg tablet 2,000 mcg PO QAM multivitamin [Multiple Vitamins] tablet 1 tab PO QAM cholecalciferol (vitamin D3) 2,000 unit tablet 2,000 units PO QAM omega-3 acid ethyl esters 1 gram capsule 1 cap PO QAM diclofenac sodium [Voltaren] 1 % gel 4 g TOP QID PRN (Reason: Pain) Rx Instructions: apply to single knee, ankle, foot; for foot includes sole/toes/top of foot hydrocortisone 2.5 % cream with perineal applicator 1 applic OK TID PRN (Reason: hemorrhoids) Qty: 30 2RF (DME) pen needle, diabetic [BD Ultra-Fine Ashley Pen Needle] 32 gauge x 5/32" needle See Rx Instructions .Route Qty: 200 5RF Rx Instructions: use 4 times per day and as needed hydrochlorothiazide 25 mg tablet 12.5 mg PO QAM Farxiga 10 mg tablet 10 mg omeprazole magnesium 20 mg PO DAILY Discharge Orders: Discharge Order (Routine); Ordered 06/30/23 Ordered By: Philippe Wise Admission Data Admit Date/Time: 06/26/23 14:07 Attending Provider: Philippe Wise Admit Provider: Eric Ramos Primary Care Provider: Aaron Olivera Other Providers: Eric Ramos ; Franko Kunz Coding Level of Care Code 84153 INP/OBS DISCH >30 MIN Diagnoses Small bowel obstruction K56.609 Nausea and vomiting R11.2 Tenosynovitis of right wrist M65.9 GERD (gastroesophageal reflux disease) K21.9 Hypertension I10 Controlled type 2 diabetes mellitus, with long-term current use of insulin E11.9; Z79.4
[2023-07-01] MEDS ORDERED: PANTOprazole 40 MG TAB PO SCH (09:00)
== END 2023-06-30 13:43 | disposition home or self-care (01) | DRG 395 ==
LOC: ED 10:50 → 3E 14:07 → SUATTDRO 14:07 → 3E 15:35

== ENCOUNTER 2024-04-18 16:26 | Inpatient (IN) ==
--- NOTE | 2024-04-18 16:44 | Emergency Department Note ---
Impression & Plan Acute dyspnea, Non-ST elevation NJ (NSTEMI), Elevated brain natriuretic peptide (BNP) level, Rhinovirus infection ED Provider Note HISTORY OF PRESENT ILLNESS: Patient is a 89-year-old female presenting with cough and shortness of breath. Patient reports for the last 10 days she has been having increasing shortness of breath both at rest and with exertion. She initially started with a nonproductive cough, but it became more productive in the last few days. She is now coughing up yellow-green sputum. She was started on a prednisone taper and azithromycin 5-day course by her primary care provider earlier in the week. Reports that she has 1 more day of antibiotics left. She went to [facility] today because her symptoms have not gotten any better. They did an EKG which showed atrial fibrillation and referred the patient to the emergency department, as this is a new diagnosis for her. She also reportedly was complaining of dizziness for 10 days to them and given her dysrhythmia, they referred her to the ER. ROS: as above PHYSICAL EXAM: Constitutional: Patient appears in no acute distress. HENT: Head: Normocephalic and atraumatic. Eyes: EOMI, PERRL Mouth/Throat: Mucous membranes moist. Neck: Trachea midline. Neck supple. Cardiovascular: Irregular rhythm. No murmurs, rubs or gallops. Intact distal pulses. Pulmonary/Chest: No respiratory distress. Breath sounds clear and equal bilaterally. No wheezes or rales. Abdominal: Abdomen soft, no tenderness, rebound or guarding. Musculoskeletal: No edema, tenderness or deformity noted. Skin: Warm and dry. No rash, erythema, pallor or cyanosis Psychiatric: Appropriate mood and affect for situation. Neurological: Alert and keenly responsive. CN II-XII grossly intact, moving all extremities equally and fully. MDM: - Vitals signs showed hypertension - History obtained via patient. History as above. - Chronic conditions affecting care: HTN; GERD; DM-2 - Differential diagnoses include, but are not limited to: Congestive heart failure; acute coronary syndrome; COPD/asthma exacerbation; pulmonary edema; pulmonary embolism; pneumonia; pneumothorax; viral syndrome - Order placed for continuous cardiac monitoring. At this time, monitor showed rate of 63 bpm with normal sinus rhythm, per my interpretation. - External medical records reviewed. Referral from [facility] was reviewed. Patient was being referred for her new A-fib without RVR that was discovered today in the setting of her shortness of breath and dizziness for 10 days. EKG obtained at the outpatient facility was reviewed by myself. It did show atrial fibrillation. Rate 69 bpm. QT 428. No acute ischemic changes. - EKG interpreted by myself showed normal sinus rhythm. Rate 76 bpm. QT 438. No acute ischemic changes - Laboratory workup interpreted by myself showed leukocytosis (WBC 13.81) with left shift; hyponatremia (Na 131); elevated BUN (37); hyperglycemia (glucose 300); elevated troponin (26); elevated BNP (268) - CXR negative for pneumonia, per my interpretation - Patient's leukocytosis likely secondary to her steroid dose pack. - VBG shows low pCO2, but patient is tachypneic and conversationally dyspneic to account for this - Viral respiratory panel positive for rhinovirus/enterovirus infection - Discussion was had with egg caser about patient's case and need for admission - Hospitalist consulted for admission - [facility] for further evaluation and management. ASSESSMENT AND PLAN: Diagnosis: acute dyspnea; rhinovirus infection; NSTEMI; elevated BNP Plan: admit Past Med/Surg History Problem List (Updated 04/18/24 @ 18:26 by Viola Root MD) Rhinovirus infection (Acute) Elevated brain natriuretic peptide (BNP) level (Acute) Non-ST elevation NJ (NSTEMI) (Acute) Acute dyspnea (Acute) Renal cyst, right Glenohumeral arthritis GERD (gastroesophageal reflux disease) Hypertension DM type 2 (diabetes mellitus, type 2) Cholelithiases Tenosynovitis of right wrist Cystic disease of breast (Chronic) Acute gastroenteritis (Acute) Dyslipidemia Vitamin D deficiency Trigger finger, acquired (Acute) Mitral regurgitation (Acute) Insomnia (Acute) Cystic kidney disease, unspecified (Acute) Chronic allergic conjunctivitis (Acute) Atypical ductal hyperplasia of breast (Acute) Extrinsic asthma, unspecified (Acute) AI (aortic insufficiency) (Acute) Medical History Small bowel obstruction Osteoarthritis Incontinence of urine GERD (gastroesophageal reflux disease) IBS (irritable bowel syndrome) [place] (hard of hearing) Cardiac murmur Asthma [place] Rectal bleeding History of colon polyps Controlled type 2 diabetes mellitus, with long-term current use of insulin Surgical History History of lumpectomy History of esophagogastroduodenoscopy (EGD) History of colonoscopy History of bowel resection H/O colonoscopy Status post total abdominal hysterectomy and bilateral salpingo-oophorectomy S/P appendectomy Family History Mother Cervical cancer Lung cancer Brother Osteoarthritis Father Tuberculosis Other No family history of adverse response to anesthesia Denies family history of Ovarian cancer Prostate cancer Coronary heart disease Breast cancer Colorectal cancer Social History Smoking Status: Never smoker Second Hand Exposure: Yes (as a child); Do You Dip or Chew Tobacco: No; Hx Alcohol Use: No Hx Substance Use: No Preferred Language: Pashto Communication Ability: Effective Visual Impairment: No Limitations Hearing Ability: Hard of Hearing Package Line Relief Operator Required: No Beliefs That Will Affect Care: None marital status: / Current Living Situation: Alone current occupational status: retired Feels Safe at Home: Yes Childhood Exposure to Second-Hand Smoke: Yes Diet: diabetic caffeine: Yes during the past year weight has: remained stable Dental Care, Regularly: Yes Physical Activity Frequency: 5-6 Times per Week Seatbelt Use: always Sunscreen Use: Yes Assistive Devices: Glasses Allergies Allergies Allergy/AdvReac Type Severity Reaction Status Date / Time No Known Allergies Allergy Unknown Verified 04/18/24 17:32 Home Meds Home Medications Medication Instructions Recorded Confirmed cholecalciferol (vitamin D3) 50 2,000 units PO QAM 10/09/19 04/18/24 mcg (2,000 unit) tablet multivitamin (Multiple Vitamins 1 tab PO QAM 10/09/19 04/18/24 tablet) omega-3 acid ethyl esters 1 gram 1 cap PO QAM 10/09/19 04/18/24 capsule cyanocobalamin (vitamin B-12) 1,000 mcg PO QAM 01/07/24 04/18/24 1,000 mcg tablet albuterol sulfate 90 mcg/actuation 2 puff inhalation Q6H PRN 04/18/24 04/18/24 aerosol inhaler Shortness Of Breath Or Wheezing diclofenac sodium 1 % topical gel 4 g topical QID PRN Pain 04/18/24 04/18/24 hydrocortisone 2.5 % topical cream 1 applic VT BID PRN hemorrhoids 04/18/24 04/18/24 with perineal applicator Previous Rx's Medication Instructions Recorded insulin syringe-needle U-100 0.3 #100 ea 01/25/23 mL 30 gauge x 1/2" (BD Insulin Syringe Ultra-Fine) pen needle, diabetic 32 gauge x #200 ea 05/17/23 5/32" (BD Ultra-Fine Ashley Pen Needle) lisinopril 20 mg tablet 20 mg PO BID 90 days #180 tabs 06/18/23 raloxifene 60 mg tablet 60 mg PO QAM #90 tabs 06/20/23 hydrochlorothiazide 25 mg tablet 12.5 mg (1/2 x 25 mg) PO QAM 90 07/06/23 days #90 tabs simvastatin 10 mg tablet 10 mg PO HS #90 tabs 11/07/23 insulin glargine 100 unit/mL (3 15 unit (0.15 mL) subcut DAILY #15 01/14/24 mL) subcutaneous pen (Lantus mL Solostar U-100 Insulin) OneTouch Ultra Test (blood sugar #300 ea 03/17/24 diagnostic) azithromycin 250 mg tablet See Rx Instructions PO .COMPLEX #6 04/14/24 tabs prednisone 10 mg tablet 10 mg PO .COMPLEX #21 tabs 04/14/24 Results & Data (ED) Vital Signs Vital Signs - 24 hr 04/18/24 16:31 04/18/24 16:40 04/18/24 16:44 Temperature Temperature Source Pulse Rate 79 63 65 Pulse Rate [Apical] Pulse Rate from SpO2 Sensor 73 59 L Pulse Rhythm Pulse Rhythm [Apical] Pulse Strength Pulse Strength [Apical] Respiratory Rate 20 21 Respiratory Effort / Characteristics Respiratory Depth Respiratory Pattern Blood Pressure Blood Pressure Mean Pulse Oximetry 99 99 Oxygen Delivery Method Sepsis Recent Fever Within 48 Hours Sepsis New/Unexplained Change in Mental Status Sepsis Action Taken by Nursing 04/18/24 16:50 04/18/24 16:51 04/18/24 16:53 Temperature 36.7 C Temperature Source Oral Pulse Rate 59 L 60 67 Pulse Rate [Apical] Pulse Rate from SpO2 Sensor 54 L Pulse Rhythm Regular Regular Pulse Rhythm [Apical] Pulse Strength Normal Pulse Strength [Apical] Respiratory Rate 22 16 18 Respiratory Effort / Characteristics Non-Labored Spontaneous Respiratory Depth Normal Respiratory Pattern Regular Blood Pressure 187/72 H Blood Pressure Mean 110 Pulse Oximetry 99 97 97 Oxygen Delivery Method Room Air Room Air Sepsis Recent Fever Within 48 Hours Yes Sepsis New/Unexplained Change in Mental Status No Sepsis Action Taken by Nursing No Action Required 04/18/24 16:53 04/18/24 17:00 04/18/24 17:01 Temperature Temperature Source Pulse Rate 59 L Pulse Rate [Apical] 55 L Pulse Rate from SpO2 Sensor 51 L Pulse Rhythm Pulse Rhythm [Apical] Regular Pulse Strength Pulse Strength [Apical] Normal Respiratory Rate 20 22 Respiratory Effort / Characteristics Non-Labored Spontaneous Respiratory Depth Normal Respiratory Pattern Regular Blood Pressure 135/67 Blood Pressure Mean 93 Pulse Oximetry 97 96 Oxygen Delivery Method Room Air Sepsis Recent Fever Within 48 Hours Sepsis New/Unexplained Change in Mental Status Sepsis Action Taken by Nursing 04/18/24 17:01 04/18/24 17:10 Temperature Temperature Source Pulse Rate 64 61 Pulse Rate [Apical] Pulse Rate from SpO2 Sensor 53 L 49 L Pulse Rhythm Pulse Rhythm [Apical] Pulse Strength Pulse Strength [Apical] Respiratory Rate 22 22 Respiratory Effort / Characteristics Respiratory Depth Respiratory Pattern Blood Pressure Blood Pressure Mean Pulse Oximetry 95 97 Oxygen Delivery Method Sepsis Recent Fever Within 48 Hours Sepsis New/Unexplained Change in Mental Status Sepsis Action Taken by Nursing Laboratory Data 04/18/24 16:30 04/18/24 16:30 Lab Results 04/18/24 04/18/24 Range/Units 16:30 17:06 WBC 13.81 H (4.8-10.8) K/ul RBC 4.52 (4.20-5.40) M/uL Hgb 14.2 (12.0-16.0) g/dl Hct 41.3 (37.0-47.0) % MCV 91.4 (80.0-100.0) fL MCH 31.4 (25.0-34.0) pg MCHC 34.4 (32.0-36.0) g/dL RDW Std Deviation 44.0 (36.4-46.3) fL RDW Coeff of Reji 13.1 (11.5-14.5) % Plt Count 226 (130-400) K/uL MPV 11.4 (9.4-12.4) fL Immature Gran % (Auto) 0.7 % Neut % (Auto) 86.4 % Lymph % (Auto) 9.0 % Meade % (Auto) 3.7 % Eos % (Auto) 0.0 % Baso % (Auto) 0.2 % Neut # (Auto) 11.94 H (1.40-6.50) K/uL Lymph # (Auto) 1.24 (1.20-3.40) K/uL Meade # (Auto) 0.51 (0.11-0.59) K/uL Eos # (Auto) 0.00 (0.00-0.50) K/uL Baso # (Auto) 0.03 (0.00-0.20) K/uL Immature Gran # (Auto) 0.09 (0.01-0.20) K/uL PT 10.3 (9.0-12.0) Seconds INR 0.9 (0.9-1.1) VBG pH 7.51 H (7.36-7.41) VBG pCO2 29 L (38-50) mmHg VBG pO2 40 mmHg VBG HCO3 23 mmol/L VBG O2 Saturation 72.9 % VBG Base Excess 1.0 mEq/L Sodium 131 L (136-145) mmol/L Potassium 4.2 (3.5-5.1) mmol/L Chloride 99 (98-107) mmol/L Carbon Dioxide 21 (21-32) mmol/L Anion Gap 11 (3-11) BUN 37 H (6-23) mg/dl Creatinine 0.95 (0.6-1.2) mg/dl Est Cr Clr Drug Dosing 34.6 ml/min Est GFR ( Amer) 61.5 ml/min Est GFR (Non-Af Amer) 53.1 ml/min BUN/Creatinine Ratio 38.9 H (10-20) Glucose 300 H (70-99(Fasting)) mg/dl Calcium 9.7 (8.6-10.3) mg/dl Magnesium 1.7 (1.7-2.4) mg/dl Total Bilirubin 0.4 (0.2-1.0) mg/dl AST 25 (13-39) U/L ALT 27 (7-52) U/L Alkaline Phosphatase 65 (34-104) U/L Troponin I High Sens 26.0 H (0-14) pg/ml B-Natriuretic Peptide 268 H (0-100) pg/ml Total Protein 6.9 (6.0-8.3) gm/dl Albumin 4.1 (3.4-5.0) gm/dl Globulin 2.8 (2.5-4.0) gm/dl Albumin/Globulin Ratio 1.5 (0.9-2) Adenovirus (PCR) Not Detected (NotDetected) B. pertussis DNA (PCR) Not Detected (NotDetected) B.parapertussis DNA PCR Not Detected (NotDetected) C. pneumoniae DNA (PCR) Not Detected (NotDetected) Coronavirus OC43 (PCR) Not Detected (NotDetected) Coronavirus HKU1 (PCR) Not Detected (NotDetected) Coronavirus 229E (PCR) Not Detected (NotDetected) SARS-CoV-2 (PCR) Not Detected (NotDetected) Coronavirus NL63 (PCR) Not Detected (NotDetected) Human Metapneumovir PCR Not Detected (NotDetected) Influenza Type A (PCR) Not Detected (NotDetected) Influenza Type B (PCR) Not Detected (NotDetected) M. pneumoniae (PCR) Not Detected (NotDetected) Parainfluenza 1 (PCR) Not Detected (NotDetected) Parainfluenza 2 (PCR) Not Detected (NotDetected) Parainfluenza 3 (PCR) Not Detected (NotDetected) Parainfluenza 4 (PCR) Not Detected (NotDetected) RSV (PCR) Not Detected (NotDetected) Entero/Rhino (PCR) DETECTED A (NotDetected) Imaging Data Radiologist's Impression: Chest X-Ray 04/18/24 16:41 XR chest 1V portable HISTORY: 89 years-old Female Dyspnea; cough acute cough with shortness of breath COMPARISON: 06/26/2023 TECHNIQUE: AP view of the chest FINDINGS: The cardiomediastinal and hilar silhouettes are within normal limits. No pneumothorax, pleural effusion, airspace consolidation or pulmonary edema. Degenerative changes of the shoulders and spine. IMPRESSION: No acute process. ACT 112: Negative or not required by law. The above report was generated using voice recognition software. It may contain grammatical, syntax or spelling errors. Electronically signed by: Steve Martínez M.D. 04/18/2024 5:39 PM Discharge Plan Visit Data Chief Complaint: Illness ED Provider: Viola Root Discharge Problem: Acute dyspnea, Non-ST elevation [place] (NSTEMI), Elevated brain natriuretic peptide (BNP) level, Rhinovirus infection Forms Stand Alone Forms: My [facility] Prescriptions Prescriptions: No Action (DME) insulin syringe-needle U-100 [BD Insulin Syringe Ultra-Fine] 0.3 mL 30 gauge x 1/2" syringe See Rx Instructions .Route Qty: 100 2RF Rx Instructions: use 1 QD with insulin lisinopril 20 mg tablet 20 mg PO BID 90 Days Qty: 180 3RF raloxifene 60 mg tablet 60 mg PO QAM Qty: 90 3RF insulin glargine [Lantus Solostar U-100 Insulin] 100 unit/mL (3 mL) insulin pen 15 unit subcut DAILY Qty: 15 3RF Rx Instructions: PT INCRESED DOSE FROM 8 UNITS QPM TO 15UNITS QPM WHILE TAKING PREDNISONE ( 04/14/24 X 5 DAYS) (DME) OneTouch Ultra Test Strip See Rx Instructions .ROUTE .MEDSUPPLY Qty: 300 1RF Rx Instructions: test 3 times daily multivitamin [Multiple Vitamins] tablet 1 tab PO QAM cholecalciferol (vitamin D3) 2,000 unit tablet 2,000 units PO QAM omega-3 acid ethyl esters 1 gram capsule 1 cap PO QAM simvastatin 10 mg tablet 10 mg PO HS Qty: 90 3RF Rx Instructions: 04/18/24 : pt not taking this med while taking prednisone 04/14/24 - 04/19/24. cyanocobalamin (vitamin B-12) 1,000 mcg tablet 1,000 mcg PO QAM (DME) pen needle, diabetic [BD Ultra-Fine Ashley Pen Needle] 32 gauge x 5/32" needle See Rx Instructions .Route Qty: 200 5RF Rx Instructions: use 4 times per day and as needed hydrochlorothiazide 25 mg tablet 12.5 mg PO QAM 90 Days Qty: 90 3RF prednisone 10 mg tablet 10 mg PO .COMPLEX Qty: 21 0RF Rx Instructions: BEGIN 04/14/24 take 6 tablets today then decrease by 1 tablet each day until gone 04/19/24. azithromycin 250 mg tablet See Rx Instructions PO .COMPLEX Qty: 6 0RF Rx Instructions: BEGIN 04/14/24, take 500 mg today (day 1), then 250 mg for 4 days (days 2- 5), END 04/18/24. albuterol sulfate 90 mcg/actuation HFA aerosol inhaler 2 puff INHALATION Q6H PRN (Reason: Shortness Of Breath Or Wheezing) diclofenac sodium 1 % Gel 4 g TOPICAL QID PRN (Reason: Pain) Rx Instructions: apply to single knee, ankle, foot; for foot includes sole/toes/top of foot hydrocortisone 2.5 % cream with perineal applicator 1 applic [place] BID PRN (Reason: hemorrhoids) Referrals Referrals: Aaron Olivera MD [Primary Care Provider] -
[2024-04-18 16:55] LABS: Basophils # (auto) 0.03 K/uL (0.00-0.20); Basophils % (auto) 0.2 %; Hematocrit (blood only) 41.3 % (37.0-47.0); Hemoglobin 14.2 g/dl (12.0-16.0); Immature Granulocytes # (auto) 0.09 K/uL (0.01-0.20); Immature Granulocytes % (auto) 0.7 %; Lymphocytes # (auto) 1.24 K/uL (1.20-3.40); Mean Corpuscular Hemoglobin 31.4 pg (25.0-34.0); Mean Corpuscular Hgb Conc 34.4 g/dL (32.0-36.0); Mean Corpuscular Volume 91.4 fL (80.0-100.0); Mean Platelet Volume 11.4 fL (9.4-12.4); Monocytes # (auto) 0.51 K/uL (0.11-0.59); Monocytes % (auto) 3.7 %; Neutrophils # (auto) 11.94 K/uL (1.40-6.50); Neutrophils % (auto) 86.4 %; Platelet Count 226 K/uL (130-400); RDW Coefficient of Variation 13.1 % (11.5-14.5); Red Blood Count 4.52 M/uL (4.20-5.40); White Blood Count 13.81 K/ul (4.8-10.8)
[2024-04-18 17:12] LABS: HCO3 VBG 23 mmol/L; Oxygen Saturation VBG 72.9 %; PCO2 VBG 29 mmHg (38-50); PO2 VBG 40 mmHg; pH VBG 7.51 (7.36-7.41)
[2024-04-18 17:20] LABS: INR 0.9 (0.9-1.1); Prothrombin Time 10.3 Seconds (9.0-12.0)
[2024-04-18 17:22] LABS: Potassium 4.2 mmol/L (3.5-5.1)
[2024-04-18 17:23] LABS: Albumin Globulin Ratio 1.5 (0.9-2); Albumin Level 4.1 gm/dl (3.4-5.0); BUN Creatinine Ratio 38.9 (10-20); Bilirubin,Total 0.4 mg/dl (0.2-1.0); Calcium 9.7 mg/dl (8.6-10.3); Creatinine Clr Calc Pharmacy 34.6 ml/min; Est GFR (African American) 61.5 ml/min; Est GFR (Non-African American) 53.1 ml/min; Globulin 2.8 gm/dl (2.5-4.0); Magnesium 1.7 mg/dl (1.7-2.4); Total Protein 6.9 gm/dl (6.0-8.3)
--- NOTE | 2024-04-18 17:40 | XRay Report ---
XR chest 1V portable HISTORY: 89 years-old Female Dyspnea; cough acute cough with shortness of breath COMPARISON: 06/26/2023 TECHNIQUE: AP view of the chest FINDINGS: The cardiomediastinal and hilar silhouettes are within normal limits. No pneumothorax, pleural effusi on, airspace consolidation or pulmonary edema. Degenerative changes of the shoulders and spine. IMPRESSION: No acute process. ACT 112: Negative or not required by law. The above report was generated using voice recognition software. It may contain grammatical, syntax o r spelling errors. Electronically signed by: Steve Martínez M.D. 04/18/2024 5:39 PM
[2024-04-18 17:48] LABS: Adenovirus PCR Not Detected (NotDetected); Bordetella parapertussis PCR Not Detected (NotDetected); Bordetella pertussis PCR Not Detected (NotDetected); Chlamydia pneumoniae PCR Not Detected (NotDetected); Coronavirus 229E PCR Not Detected (NotDetected); Coronavirus CoV-2 (COVID19)PCR Not Detected (NotDetected); Coronavirus HKU1 PCR Not Detected (NotDetected); Coronavirus NL63 PCR Not Detected (NotDetected); Coronavirus OC43PCR Not Detected (NotDetected); Human Metapneumovirus PCR Not Detected (NotDetected); Influenza A PCR Not Detected (NotDetected); Influenza B PCR Not Detected (NotDetected); Mycoplasma pneumoniae PCR Not Detected (NotDetected); Parainfluenza Virus 1 PCR Not Detected (NotDetected); Parainfluenza Virus 2 PCR Not Detected (NotDetected); Parainfluenza Virus 3 PCR Not Detected (NotDetected); Parainfluenza Virus 4 PCR Not Detected (NotDetected); Respiratory Syncytial VirusPCR Not Detected (NotDetected); Rhinovirus/Enterovirus PCR DETECTED (NotDetected)
--- NOTE | 2024-04-18 19:23 | History & Physical Report ---
Date of Service April 18, 2024 Assessment & Plan (1) Acute dyspnea: Plan: Meme is an 89F w/ PMH of GERD, HTN, DM2, cholelithiasis, dyslipidemia, Vitamin D deficiency, mitral regurgitation, CKD, aortic insufficiency, and asthma who presents for dyspnea. Entero/Rhinovirus Infection | Asthma Exacerbation - Entero/rhinovirus positive on admission - CXR negative for consolidation - Longstanding history of Asthma, managed with Albuterol PRN at baseline Acutely worsened symptoms over last two weeks Mild improvement with nebulizer treatments Outpatient use of Prednisone/Azithromycin PO - Leukocytosis on admission, potentially 2/2 steroid use Otherwise, hemodynamically stable, w/ subjective fevers/chills - Start Pulmicort Respules 0.5 BID for asthma exacerbation - Continue supportive measures Mucinex BID Duonebs Q4h Albuterol PRN mIVF in setting of viral infection New A Fib | Elevated Troponin/ Elevated BNP - No prior history of A Fib, no chest pain or palpitations Dyspnea secondary to viral infection - Troponin elevation likely in setting of demand ischemia Troponin appears chronically elevated Continue to trend to peak No ST or T wave changes on EKG - Elevated BNP, no evidence of fluid overload, no Hx of HF - Start Heparin anticoagulation d/t elevated CHADVASC Consider transition to DOAC - Maintain K of 4/ Mg of 2 Magnesium repletion ordered - Echocardiogram ordered given new A Fib and hx of MR/Aortic insufficiency Last study 01/2023 Hyponatremia - 131 on admission - Suspect dehydration from acute illness vs tea/toast due to low PO intake - mIVF ordered on admission, follow Na level Chronic Conditions: DM2 - Home meds held - Last A1c (01/2024) 7.0 - Continue Lantus 15 units daily - SSI ordered w/ BSG checks ACHS GERD: No home medication HTN: Continue home antihypertensives HLD: Continue home statin FEN: DM2, low FODMAP: lactose intolerant, gluten free IVF: maintenance Code status: Full Code (patient unsure on admission, elected Full code) DVT ppx: Heparin therapeutic for new AFib Isolation: Droplet for viral infection Dispo:Med/Surg w/ Tele (2) Non-ST elevation CT (NSTEMI): (3) Rhinovirus infection: (4) GERD (gastroesophageal reflux disease): (5) Hypertension: (6) DM type 2 (diabetes mellitus, type 2): (7) Dyslipidemia: (8) Mitral regurgitation: (9) AI (aortic insufficiency): (10) Asthma exacerbation: History of Present Illness Chief Complaint: Meme is an 89F w/ PMH of GERD, HTN, DM2, cholelithiasis, dyslipidemia, Vitamin D deficiency, mitral regurgitation, CKD, aortic insufficiency, and asthma who presents for dyspnea. Patient notes that 2 weeks ago, after being out in her yard cutting grass, she had an episode of feeling very tired. She went inside and took at nap, but when she awakened she had PND, sneezing, coughing, and congestion. These symptoms lasted for a week. She tried Mucinex and Zyrtec without benefit. She continued to use her home rescue Albuterol. During the first week her cough was dry and non-productive. She went to see her granddaughter in [place] for Mother's day, and when she returned she was feeling more sick. Her cough had become productive. Saturday she was evaluated at her PCP's office and was told she had rales in her lower lungs. She received a nebulizer in office, and was sent home with Prednisone and Azithromycin. These did not resolve her symptoms. This morning she was still experiencing a crackling sensation in her lungs and a productive cough. She noticed that when she talks to her friends on the phone she is having to speak in shorter sentences and feels more dyspneic than normal. Thus, she presented to the hospital. Patient endorses subjective fevers, and chills at home, but no temperature elevations. She has no history of A Fib, but does not MR and aortic ins ufficiency, which has been stable. She has a history of megacolon/bowel obstruction/potential UGIB in 1990. She is incontinent at baseline and wears briefs. She notes good hydration and unchanged appetite at home. She adheres to a low FODMAP diet and primarily only eats breakfast, otherwise consumes coffee and tea. Average BSG at home is 150s, has been high 200s to low 300s since starting steroid. Last BM was this morning. Primary Care Provider: Aaron Olivera MD Allergies Allergy/AdvReac Type Severity Reaction Status Date / Time gluten AdvReac Verified 04/19/24 11:05 lactose AdvReac Verified 04/19/24 11:05 Home Medications Medication Instructions Recorded Confirmed Type cholecalciferol (vitamin D3) 50 2,000 units PO QAM 10/09/19 04/18/24 History mcg (2,000 unit) tablet multivitamin (Multiple Vitamins 1 tab PO QAM 10/09/19 04/18/24 History tablet) omega-3 acid ethyl esters 1 gram 1 cap PO QAM 10/09/19 04/18/24 History capsule insulin syringe-needle U-100 0.3 #100 ea 01/25/23 04/14/24 Rx mL 30 gauge x 1/2" (BD Insulin Syringe Ultra-Fine) pen needle, diabetic 32 gauge x #200 ea 05/17/23 04/14/24 Rx 5/32" (BD Ultra-Fine Ashley Pen Needle) lisinopril 20 mg tablet 20 mg PO BID 90 days #180 tabs 06/18/23 04/18/24 Rx raloxifene 60 mg tablet 60 mg PO QAM #90 tabs 06/20/23 04/18/24 Rx hydrochlorothiazide 25 mg tablet 12.5 mg (1/2 x 25 mg) PO QAM 90 07/06/23 04/18/24 Rx days #90 tabs simvastatin 10 mg tablet 10 mg PO HS #90 tabs 11/07/23 04/18/24 Rx cyanocobalamin (vitamin B-12) 1,000 mcg PO QAM 01/07/24 04/18/24 History 1,000 mcg tablet insulin glargine 100 unit/mL (3 15 unit (0.15 mL) subcut DAILY #15 01/14/24 04/18/24 Rx mL) subcutaneous pen (Lantus mL Solostar U-100 Insulin) OneTouch Ultra Test (blood sugar #300 ea 03/17/24 04/14/24 Rx diagnostic) azithromycin 250 mg tablet See Rx Instructions PO .COMPLEX #6 04/14/24 04/18/24 Rx tabs prednisone 10 mg tablet 10 mg PO .COMPLEX #21 tabs 04/14/24 04/18/24 Rx albuterol sulfate 90 mcg/actuation 2 puff inhalation Q6H PRN 04/18/24 04/18/24 History aerosol inhaler Shortness Of Breath Or Wheezing diclofenac sodium 1 % topical gel 4 g topical QID PRN Pain 04/18/24 04/18/24 History hydrocortisone 2.5 % topical cream 1 applic [place] BID PRN hemorrhoids 04/18/24 04/18/24 History with perineal applicator Past Med/Surg History Problem List (Updated 04/19/24 @ 10:36 by Shanna Trujillo MD) Afib Asthma exacerbation Rhinovirus infection (Acute) Elevated brain natriuretic peptide (BNP) level (Acute) Non-ST elevation CT (NSTEMI) (Acute) Acute dyspnea (Acute) Renal cyst, right Glenohumeral arthritis GERD (gastroesophageal reflux disease) Hypertension DM type 2 (diabetes mellitus, type 2) Cholelithiases Tenosynovitis of right wrist Cystic disease of breast (Chronic) Acute gastroenteritis (Acute) Dyslipidemia Vitamin D deficiency Trigger finger, acquired (Acute) Mitral regurgitation (Acute) Insomnia (Acute) Cystic kidney disease, unspecified (Acute) Chronic allergic conjunctivitis (Acute) Atypical ductal hyperplasia of breast (Acute) Extrinsic asthma, unspecified (Acute) AI (aortic insufficiency) (Acute) Medical History Small bowel obstruction Osteoarthritis Incontinence of urine GERD (gastroesophageal reflux disease) IBS (irritable bowel syndrome) [place] (hard of hearing) Cardiac murmur Asthma Megacolon Rectal bleeding History of colon polyps Controlled type 2 diabetes mellitus, with long-term current use of insulin Surgical History History of lumpectomy History of esophagogastroduodenoscopy (EGD) History of colonoscopy History of bowel resection H/O colonoscopy Status post total abdominal hysterectomy and bilateral salpingo-oophorectomy S/P appendectomy Family History Mother Cervical cancer Lung cancer Brother Osteoarthritis Father Tuberculosis Other No family history of adverse response to anesthesia Denies family history of Ovarian cancer Prostate cancer Coronary heart disease Breast cancer Colorectal cancer Social History Smoking Status: Never smoker Second Hand Exposure: Yes (as a child); Do You Dip or Chew Tobacco: No; Hx Alcohol Use: No Hx Substance Use: No Preferred Language: Citizen Of [place] Communication Ability: Effective Visual Impairment: No Limitations Hearing Ability: Hard of Hearing Calculus Teacher Required: No Beliefs That Will Affect Care: None marital status: / Current Living Situation: Alone current occupational status: retired Feels Safe at Home: Yes Safety Concerns: Feels Safe At This Time Childhood Exposure to Second-Hand Smoke: Yes Diet: diabetic caffeine: Yes during the past year weight has: remained stable Dental Care, Regularly: Yes Physical Activity Frequency: 5-6 Times per Week Seatbelt Use: always Sunscreen Use: Yes Assistive Devices: Cane Physical Exam Physical Exam: Gen: NAD, alert, interactive HEENT: Supple, no LAD, no thyromegaly, no JVD - Oropharyngeal erythema, MMM Resp:Non-labored, bilateral lower lobe wheezing, no rhonchi/rales CV:irregularly-irregular rhythm, normal rage, normal S1/S2, no M/R/G Abd: Soft, non-distended, no TTP, normoactive bowels, no masses Extr: 2+ dp bilaterally, no edema Skin: No rashes lesions or erythema Results & Data Results & Data Vital Signs (Past 12 Hours) Vital Signs Temp Pulse Pulse Resp BP BP Pulse Ox 04/18/24 18:45 60 20 126/64 97 04/18/24 17:10 61 22 97 04/18/24 17:01 64 22 95 04/18/24 17:01 135/67 04/18/24 17:00 59 L 22 96 04/18/24 16:53 55 L 20 97 04/18/24 16:53 36.7 C 67 18 187/72 H 97 04/18/24 16:51 60 16 97 04/18/24 16:50 59 L 22 99 04/18/24 16:44 65 04/18/24 16:40 63 21 99 04/18/24 16:31 79 20 99 O2 Del Method 04/18/24 18:45 Room Air 04/18/24 17:10 04/18/24 17:01 04/18/24 17:01 04/18/24 17:00 04/18/24 16:53 Room Air 04/18/24 16:53 Room Air 04/18/24 16:51 Room Air 04/18/24 16:50 04/18/24 16:44 04/18/24 16:40 04/18/24 16:31 Supervising Physician Co-Signing Physician Notes Attending addendum: I have physically seen this patient, have supervised the medical residents activities, and agree with the H&P unless as otherwise noted. Assessment and Plan: Asthma exacerbation/enterovirus-rhinovirus infection-- Positive respiratory BioFire test Failure of outpatient prednisone and azithromycin PO Start Pulmicort Respules 0.5 mg inhaled twice daily Duonebs every 4 hours while awake and every 2 hours when necessary. Mucinex 600 mg p.o. twice daily New onset atrial fibrillation/elevated troponin- The patient will be admitted to telemetry for serial cardiac enzymes, serial EKG's, cardiac rhythm monitoring and a 2-D echocardiogram with Dopplers. Heparin IV per protocol Magnesium 1.7, replaced IV Patient did convert back to normal sinus rhythm with PACs while in the ED Hyperglycemia- Glucose 300 by admission labs No history of diabetes, likely secondary to outpatient prednisone use, and would therefore avoid inpatient steroids Remaining orders and notations as noted Resident Activity Tracking Resident Involvement: Resident Care Provided Care Provided: Adult Hospital Medicine (Night) (4) GERD (gastroesophageal reflux disease) Esophagitis presence: without esophagitis Qualified Code(s): K21.9 - Gastro- esophageal reflux disease without esophagitis (5) Hypertension Hypertension type: primary hypertension Qualified Code(s): I10 - Essential (primary) hypertension (6) DM type 2 (diabetes mellitus, type 2) Chronic kidney disease stage: stage 3 (moderate) Chronic kidney disease stage 3 subtype: stage 3a (GFR 45-59) Diabetes mellitus complication detail: with chronic kidney disease Diabetes mellitus complication status: with kidney complications Diabetes mellitus group home insulin use: with intermission coordinator use Qualified Code(s): E11.22 - Type 2 diabetes mellitus with diabetic chronic kidney disease; N18.31 - Chronic kidney disease, stage 3a; Z79.4 - joint terminal attack controller (current) use of insulin
[2024-04-18 21:47] LABS: Appearance Urine Clear (Clear); Bilirubin Urine Negative (Negative); Blood Urine Negative (Negative); Color Urine Yellow; Glucose Urine UA Trace (Negative); Ketones Urine Negative (Negative); Leukocyte Esterase Urine Negative (Negative); Nitrite Urine Negative (Negative); Protein Urine Negative (Negative); Urobilinogen Urine Negative (Negative); pH Urine 5.5 (4.5-7.5)
[2024-04-18] MEDS ORDERED: GLUCOSE 10 TAB/TUBE PO PRN (22:36)
[2024-04-18] MEDS ORDERED: GLUCOSE 40% GEL 15 GM TUBE PO PRN (22:36)
[2024-04-18] MEDS ORDERED: ACETAMINOPHEN 325 MG TAB PO PRN (22:36)
[2024-04-18] MEDS ORDERED: DEXTROSE 50% 50 ML SYRINGE IV PRN (22:36)
[2024-04-18] MEDS ORDERED: POLYETHYLENE (MIRALAX) 17 GM PACK PO PRN (22:36)
[2024-04-18] MEDS ORDERED: GLUCAGON FOR INJ 1 MG VIAL SQ PRN (22:36)
[2024-04-18] MEDS ORDERED: ALBUTEROL HFA 8 GM INHALER INH PRN (22:36)
[2024-04-18] MEDS ORDERED: CARBOHYDRATES FOR HYPOGLYCEMIA PO PRN (22:36)
[2024-04-18] MEDS: SODIUM CHLORIDE 0.9% 500 ML IV SCH (23:11)
[2024-04-18] MEDS: guaiFENesin 600 MG TABCR PO SCH (23:11)
[2024-04-18] MEDS: lisinopril 20 MG TAB PO SCH (23:12)
[2024-04-18] MEDS: INSULIN ASPART PER UNIT CHARGE SC SCH (23:12)
[2024-04-18] MEDS: SIMVASTATIN 10 MG TAB PO SCH (23:13)
[2024-04-18] MEDS: AZITHROMYCIN 500 MG in DEXTROSE 5% 250 ML IV SCH (23:16)
[2024-04-18] MEDS: ONDANSETRON INJ 2 MG/ML 2 ML VIAL IV PRN (23:48)
[2024-04-18] MEDS: HEPARIN SODIUM/DEXTROSE 25,000 UNITS/500 ML BAG IV SCH (23:59)
[2024-04-19] MEDS: SODIUM CHLORIDE 0.9% 1,000 ML IV SCH
[2024-04-19] MEDS: Heparin IV Adult Wt-Based Standard *NO* INITIAL Bolus Protocol IV STA (00:04)
[2024-04-19] MEDS: FAMOTIDINE 20 MG TAB PO STA (00:41)
[2024-04-19] MEDS: MAGNESIUM SULFATE / D5W 1 GM/100 ML BAG IV SCH (01:22)
[2024-04-19] MEDS: ALBUT/IPRATROP 3MG/0.5MG NEB 3 ML VIAL NEB SCH (01:55)
[2024-04-19 07:24] LABS: Hematocrit (blood only) 37.8 % (37.0-47.0); Mean Corpuscular Hemoglobin 31.3 pg (25.0-34.0); Mean Corpuscular Hgb Conc 34.4 g/dL (32.0-36.0); Mean Corpuscular Volume 91.1 fL (80.0-100.0); Mean Platelet Volume 11.4 fL (9.4-12.4); Platelet Count 207 K/uL (130-400); RDW Coefficient of Variation 13.1 % (11.5-14.5); RDW Standard Deviation 43.6 fL (36.4-46.3); Red Blood Count 4.15 M/uL (4.20-5.40)
[2024-04-19] MEDS: BUDESONIDE 0.5 MG/2 ML VIAL (PULMICORT) NEB SCH (07:31)
[2024-04-19 07:39] LABS: BUN Creatinine Ratio 29.3 (10-20); Calcium 9.2 mg/dl (8.6-10.3); Creatinine Clr Calc Pharmacy 40.7 ml/min; Est GFR (African American) 73.5 ml/min; Est GFR (Non-African American) 63.4 ml/min; Potassium 3.8 mmol/L (3.5-5.1)
[2024-04-19 07:45] LABS: Prothrombin Time 10.9 Seconds (9.0-12.0); Troponin I High Sensitivity 35.4 pg/ml (0-14)
[2024-04-19] MEDS: hydroCHLOROthiazide 25 MG TAB PO SCH (08:34)
[2024-04-19] MEDS: RALOXIFENE HCL 60 MG TAB PO SCH (08:34)
[2024-04-19] MEDS: LANTUS PER UNIT CHARGE SQ SCH (08:41)
--- NOTE | 2024-04-19 09:13 | Electrocardiogram Report ---
Test Reason : Blood Pressure : / mmHG Vent. Rate : 076 BPM Atrial Rate : 076 BPM P-R Int : 128 ms QRS Dur : 114 ms QT Int : 438 ms P-R-T Axes : 076 034 059 degrees QTc Int : 492 ms Sinus rhythm with Premature atrial complexes Right bundle branch block with repolarization abnormality Abnormal ECG When compared with ECG of 26-JUN-2023 11:27, Premature atrial complexes are now Present Left anterior fascicular block no longer present QT has lengthened Criteria for Inferior infarct no longer present Confirmed by Kadeem Goins ([id number]) on 04/19/2024 9:12:32 AM Referred By: REFERRED SELF Confirmed By:Kadeem Goins
--- NOTE | 2024-04-19 09:32 | XCELERA ---
[id number]
[2024-04-19] MEDS: APIXABAN 2.5 MG TAB PO SCH (10:24)
--- NOTE | 2024-04-19 10:38 | Hospitalist Progress Note ---
Date of Service April 19, 2024 Assessment & Plan (1) Rhinovirus infection: Plan: 1. Enterovirus/rhinovirus infection: Patient admitted to the hospital on account of worsening shortness of breath. Found to have entero and rhinovirus Chest x-ray did not show any evidence of consolidation. Continue symptomatic management (2) Asthma exacerbation: Plan: 2. Acute asthma exacerbation: Secondary to rhinovirus infection Failed outpatient management with oral steroids. Continue DuoNebs scheduled and as needed, albuterol Also budesonide 0.5 mg twice daily (3) Afib: Plan: 3. New onset A-fib: Found to be in A-fib with moderate ventricular rate Initially started on heparin, changed to p.o. Eliquis 2.5 mg twice daily (4) Non-ST elevation MD (NSTEMI): Plan: 4. Elevated troponin: Most likely due to demand ischemia from A-fib No chest pain or ST changes on EKG. 2D echo has been ordered, result pending (5) DM type 2 (diabetes mellitus, type 2): Plan: 5. Type 2 diabetes: Blood glucose under good control Continue home Lantus and insulin sliding scale. Plan Continue to monitor in the hospital Admission and Anticipated Discharge Date Admission Date: April 18, 2024 Subjective Patient seen and examined, states her shortness of breath is much improved, still coughing up a little bit. Review of Systems Review of Systems: All systems reviewed are negative, apart from the ones contained in the history. Physical Exam Physical Exam: The patient is awake, alert and oriented 3, well developed and well nourished, normocephalic and atraumatic, lying in bed and in no acute distress. HEENT--PERRL, EOMI, mucous membranes and oropharynx mildly dry Neck--supple. No JVD. No bruits. Thyroid normal, trachea midline, no adenopathy. Heart--normal S1 and S2. No murmurs, rubs or gallops. Lungs--Reduced air entry on auscultation, mild bibasilar wheeze Abdomen--normal bowel sounds and soft. Extremities--no cyanosis or clubbing. No edema. Dermatologic--normal skin turgor, normal color, no abnormal lymph nodes, no rash. Neurologic--cranial nerves II through XII grossly intact. Rheumatologic--normal range of motion. Psychiatric--normal affect. Results & Data Results & Data Vital Signs (Past 12 Hours) Vital Signs Temp Pulse Pulse Resp BP BP Pulse Ox 04/19/24 07:49 48 L 04/19/24 07:34 97.3 F L 55 L 18 140/74 99 04/19/24 03:20 97.9 F 56 L 20 98/58 L 98 04/19/24 01:56 51 L 18 95 04/19/24 00:46 98.2 F 61 20 162/63 H 97 04/18/24 23:00 57 L 04/18/24 22:36 97.9 F 64 20 O2 Del Method 04/19/24 07:49 04/19/24 07:34 Room Air 04/19/24 03:20 Room Air 04/19/24 01:56 Room Air 04/19/24 00:46 Room Air 04/18/24 23:00 04/18/24 22:36 Room Air PG Care Time/CCT Total # of Minutes Spent Total Time Spent with Patient: Total time spent is greater than 50% in coordination of care (as documented) at patient's floor/unit and/or counseling patient: Coding Level of Care Code 82292 SUB INP/OBS CARE 2/35MIN Diagnoses Rhinovirus infection B34.8 Asthma exacerbation J45.901 Afib I48.91 Non-ST elevation MD (NSTEMI) I21.4 Type 2 diabetes mellitus with stage 3a chronic kidney disease, with long-term current use of insulin E11.22; N18.31; Z79.4 Diabetes mellitus terminal operator insulin use: with terminal operator use Diabetes mellitus complication status: with kidney complications Diabetes mellitus complication detail: with chronic kidney disease Chronic kidney disease stage: stage 3 (moderate) Chronic kidney disease stage 3 subtype: stage 3a (GFR 45-59) Time Spent (min) 35 (5) DM type 2 (diabetes mellitus, type 2) Diabetes mellitus alf insulin use: with alf use Diabetes mellitus complication status: with kidney complications Diabetes mellitus complication detail: with chronic kidney disease Chronic kidney disease stage: stage 3 (moderate) Chronic kidney disease stage 3 subtype: stage 3a (GFR 45-59) Qu alified Code(s): E11.22 - Type 2 diabetes mellitus with diabetic chronic kidney disease; N18.31 - Chronic kidney disease, stage 3a; Z79.4 - intermediate (current) use of insulin
[2024-04-19] MEDS: FAMOTIDINE 20 MG TAB PO ONE (23:41)
--- NOTE | 2024-04-20 05:49 | Billing Data ---
Date of Service April 20, 2024 Coding Level of Care Code 01844 INT INP/OBS CARE
[2024-04-20 07:45] LABS: Hematocrit (blood only) 39.6 % (37.0-47.0); Hemoglobin 13.3 g/dl (12.0-16.0); Mean Corpuscular Hgb Conc 33.6 g/dL (32.0-36.0); Mean Corpuscular Volume 92.3 fL (80.0-100.0); Mean Platelet Volume 11.1 fL (9.4-12.4); Platelet Count 206 K/uL (130-400); RDW Coefficient of Variation 13.4 % (11.5-14.5); RDW Standard Deviation 45.4 fL (36.4-46.3); Red Blood Count 4.29 M/uL (4.20-5.40); White Blood Count 9.39 K/ul (4.8-10.8)
[2024-04-20 08:07] LABS: Calcium 9.3 mg/dl (8.6-10.3); Creatinine Clr Calc Pharmacy 29.8 ml/min; Potassium 4.4 mmol/L (3.5-5.1)
[2024-04-20 08:12] LABS: Prothrombin Time 10.9 Seconds (9.0-12.0)
--- NOTE | 2024-04-20 12:02 | Discharge Summary ---
Date of Service April 20, 2024 Principal Diagnosis rhino virus/asthma exacerbation Discharge Exam The patient is awake, alert and oriented 3, well developed and well nourished, normocephalic and atraumatic, lying in bed and in no acute distress. HEENT--PERRL, EOMI, mucous membranes and oropharynx mildly dry Neck--supple. No JVD. No bruits. Thyroid normal, trachea midline, no adenopathy. Heart--normal S1 and S2. No murmurs, rubs or gallops. Lungs--Reduced air entry on auscultation, mild bibasilar wheeze Abdomen--normal bowel sounds and soft. Extremities--no cyanosis or clubbing. No edema. Dermatologic--normal skin turgor, normal color, no abnormal lymph nodes, no rash. Neurologic--cranial nerves II through XII grossly intact. Rheumatologic--normal range of motion. Psychiatric--normal affect. Discharge Data Allergies Allergy/AdvReac Type Severity Reaction Status Date / Time gluten AdvReac Verified 04/19/24 11:05 lactose AdvReac Verified 04/19/24 11:05 Consultations 04/18/24 18:41 ED Decision to Admit Stat Hospital Course (1) Rhinovirus infection: 1. Enterovirus/rhinovirus infection: Patient admitted to the hospital on account of worsening shortness of breath. Found to have entero and rhinovirus Chest x-ray did not show any evidence of consolidation. Continue symptomatic management (2) Asthma exacerbation: 2. Acute asthma exacerbation: Secondary to rhinovirus infection Failed outpatient management with oral steroids. Continue DuoNebs scheduled and as needed, albuterol Also budesonide 0.5 mg twice daily (3) Afib: 3. New onset A-fib: Found to be in A-fib with moderate ventricular rate Initially started on heparin, changed to p.o. Eliquis 2.5 mg twice daily (4) Non-ST elevation [place] (NSTEMI): 4. Elevated troponin: Most likely due to demand ischemia from A-fib No chest pain or ST changes on EKG. 2D echo has been ordered, result pending (5) DM type 2 (diabetes mellitus, type 2): 5. Type 2 diabetes: Blood glucose under good control Continue home Lantus and insulin sliding scale. Plan Continue to monitor in the hospital Total Time Total Time Spent Total Time Spent (In Minutes): 35 Discharge Plan Discharge Items Patient Disposition: Home - Self-Care Reason For Visit: VIRAL URI/ASTHMA EXACERBATION Discharge Diagnosis: viral URI/asthma excaerbation Activity: Resume your previous activity Lifting: Gradually increase as tolerated Non-emergency contact: Primary Care Provider Call non-emergency contact if: you have any medication questions and your symptoms worsen Follow-up/Referrals: Aaron Olivera MD [Primary Care Provider] - Diet: Regular Addtl Attending Provider Instructions: Please make appointment to follow-up with her regular PCP Pending Studies at Discharge: No Stand-Alone Forms: My NeurOp, Smoking Cessation Medications and DC Order Prescriptions: New Eliquis 2.5 mg Tablet 2.5 mg PO BID 30 Days Qty: 60 0RF Continued (DME) insulin syringe-needle U-100 [BD Insulin Syringe Ultra-Fine] 0.3 mL 30 gauge x 1/2" syringe See Rx Instructions .Route Qty: 100 2RF Rx Instructions: use 1 QD with insulin lisinopril 20 mg tablet 20 mg PO BID 90 Days Qty: 180 3RF raloxifene 60 mg tablet 60 mg PO QAM Qty: 90 3RF insulin glargine [Lantus Solostar U-100 Insulin] 100 unit/mL (3 mL) insulin pen 15 unit subcut DAILY Qty: 15 3RF Rx Instructions: PT INCRESED DOSE FROM 8 UNITS QPM TO 15UNITS QPM WHILE TAKING PREDNISONE ( 04/14/24 X 5 DAYS) (DME) OneTouch Ultra Test Strip See Rx Instructions .ROUTE .MEDSUPPLY Qty: 300 1RF Rx Instructions: test 3 times daily multivitamin [Multiple Vitamins] tablet 1 tab PO QAM cholecalciferol (vitamin D3) 2,000 unit tablet 2,000 units PO QAM omega-3 acid ethyl esters 1 gram capsule 1 cap PO QAM simvastatin 10 mg tablet 10 mg PO HS Qty: 90 3RF Rx Instructions: 04/18/24 : pt not taking this med while taking prednisone 04/14/24 - 04/19/24. cyanocobalamin (vitamin B-12) 1,000 mcg tablet 1,000 mcg PO QAM (DME) pen needle, diabetic [BD Ultra-Fine Ashley Pen Needle] 32 gauge x 5/32" needle See Rx Instructions .Route Qty: 200 5RF Rx Instructions: use 4 times per day and as needed hydrochlorothiazide 25 mg tablet 12.5 mg PO QAM 90 Days Qty: 90 3RF prednisone 10 mg tablet 10 mg PO .COMPLEX Qty: 21 0RF Rx Instructions: BEGIN 04/14/24 take 6 tablets today then decrease by 1 tablet each day until gone 04/19/24. azithromycin 250 mg tablet See Rx Instructions PO .COMPLEX Qty: 6 0RF Rx Instructions: BEGIN 04/14/24, take 500 mg today (day 1), then 250 mg for 4 days (days 2- 5), END 04/18/24. albuterol sulfate 90 mcg/actuation HFA aerosol inhaler 2 puff INHALATION Q6H PRN (Reason: Shortness Of Breath Or Wheezing) diclofenac sodium 1 % Gel 4 g TOPICAL QID PRN (Reason: Pain) Rx Instructions: apply to single knee, ankle, foot; for foot includes sole/toes/top of foot hydrocortisone 2.5 % cream with perineal applicator 1 applic [place] BID PRN (Reason: hemorrhoids) Discharge Orders: Discharge Order (Routine); Ordered 04/20/24 Ordered By: Shanna Trujillo Admission Data Admit Date/Time: 04/18/24 20:30 Attending Provider: Shanna Trujillo Admit Provider: Alfonso Harvey Primary Care Provider: Aaron Olivera Other Providers: Patrick Schulz Coding Level of Care Code 15967 INP/OBS DISCH >30 MIN Diagnoses Rhinovirus infection B34.8 Asthma exacerbation J45.901 Afib I48.91 Non-ST elevation [place] (NSTEMI) I21.4 Type 2 diabetes mellitus with stage 3a chronic kidney disease, with long-term current use of insulin E11.22; N18.31; Z79.4 Diabetes mellitus intermediate card tender insulin use: with residential use Diabetes mellitus complication status: with kidney complications Diabetes mellitus complication detail: with chronic kidney disease Chronic kidney disease stage: stage 3 (moderate) Chronic kidney disease stage 3 subtype: stage 3a (GFR 45-59) Time Spent (min) 35
== END 2024-04-20 14:20 | disposition home or self-care (01) | DRG 866 ==
LOC: ED 16:26 → 2S 20:30 → SUATTDRO 20:30 → 2S 22:03